=== PATIENT | male | born 1950 | race American Indian/Alaskan Native ===

== ENCOUNTER 2018-11-01 14:06 | Emergency (ER) | payer MEDICARE, OTHER ==
[2018-11-01 14:35] VITALS: BP 145/94
--- NOTE | 2018-11-01 14:35 | Emergency Department Report ---
Blank Doc - Documentation Documentation: 68 M with a u cat presents cc of pain stating that it was placed on sunday f or inability to void. no hx of bladder disease states he cant see urologist for 1 week and he is in pain
--- NOTE | 2018-11-01 15:07 | Emergency Department Report ---
ED Male HPI - General Chief complaint: Urogenital-Male Stated complaint: CATHETER REMOVAL Time Seen by Provider: 11/01/18 14:31 Source: patient Mode of arrival: Ambulatory Limitations: No Limitations - History of Present Illness Initial comments: 68-year-old male with a past medical history of hypertension, kidney stones, and a large prostate presents to Hospital once his Tapia catheter removed. Patient was here on October 26 with urinary retention and Tapia catheter with leg bag was placed at that time.. Patient had workup including CT which was positive for enlarged prostate. Patient called and made an appointment with the urologist provided. Appointment is not for another week and he wants the catheter removed to due to penile irritation. Patient states he has noticed intermittent blood in his urine but is not for persistently bleeding from the catheter. The patient denies abdominal pain, nausea, vomiting, or fever. Patient states he has been told his prostate is large and a past but has never been on Flomax and denies a history of prostate cancer. - Related Data Home Medications Medication Instructions Recorded Confirmed Last Taken Lisinopril [Zestril] 20 mg PO QDAY 04/22/14 04/22/14 04/09/14 Verapamil ER [[place] Sr] 180 mg PO BID 04/22/14 04/22/14 04/22/14 19:00 Previous Rx's Medication Instructions Recorded Last Taken Type HYDROcodone/APAP 5-325 [[place] 1 each PO Q6HR PRN #10 tablet 04/23/14 Unknown Rx 5/325] Lisinopril [Zestril TAB] 20 mg PO QDAY #30 tablet 04/23/14 Unknown Rx Verapamil ER [[place] SR] 180 mg PO BID #60 tab 04/23/14 Unknown Rx HYDROcodone/APAP 5-325 [[place] 1 - 2 each PO Q6HR PRN #14 tablet 10/26/18 Unknown Rx 5/325] Phenazopyridine [Pyridium] 200 mg PO TID #6 tab 10/26/18 Unknown Rx Tamsulosin [Flomax] 0.4 mg PO QDAY #30 cap 11/01/18 Unknown Rx Allergies Allergy/AdvReac Type Severity Reaction Status Date / Time No Known Allergies Allergy Verified 04/22/14 19:40 ED Review of Systems ROS: Stated complaint: CATHETER REMOVAL Other details as noted in HPI Comment: All other systems reviewed and negative ED Past Medical Hx - Past Medical History Hx Hypertension: Yes Hx Kidney Stones: Yes - Surgical History Additional Surgical History: leg surgery - Social History Smoking Status: Never Smoker Substance Use Type: None - Medications Home Medications: Home Medications Medication Instructions Recorded Confirmed Last Taken Type Lisinopril [Zestril] 20 mg PO QDAY 04/22/14 04/22/14 04/09/14 History Verapamil ER [[place] Sr] 180 mg PO BID 04/22/14 04/22/14 04/22/14 19:00 History HYDROcodone/APAP 5-325 [[place] 1 each PO Q6HR PRN #10 tablet 04/23/14 Unknown Rx 5/325] Lisinopril [Zestril TAB] 20 mg PO QDAY #30 tablet 04/23/14 Unknown Rx Verapamil ER [[place] SR] 180 mg PO BID #60 tab 04/23/14 Unknown Rx HYDROcodone/APAP 5-325 [[place] 1 - 2 each PO Q6HR PRN #14 tablet 10/26/18 Unknown Rx 5/325] Phenazopyridine [Pyridium] 200 mg PO TID #6 tab 10/26/18 Unknown Rx Tamsulosin [Flomax] 0.4 mg PO QDAY #30 cap 11/01/18 Unknown Rx ED Physical Exam - General Limitations: No Limitations - Other Other exam information: General: No limitations, patient is alert in no acute distress Head exam: Atraumatic, normocephalic Eyes exam: Normal appearance ENT: Moist mucous membrane Neck exam: Normal inspection, full range of motion, no meningismus nontender Respiratory exam: Clear to auscultation bilateral, no wheezes, rales, crackles Cardiovascular: Normal rate and rhythm, normal heart sounds Abdomen: Soft, nondistended, and nontender, with normal bowel sounds, no rebound, or guarding : Uncircumcised, no penile lesions, Tapia catheter, no testicular pain or swelling. Extremity: Full range of motion normal inspection no deformity Back: Normal Inspection, full range of motion, no tenderness Neurologic: Alert, oriented x3, cranial nerves intact, no motor or sensory deficit Psychiatric: normal affect, normal mood Skin: Warm, dry, intact ED Course Vital Signs 11/01/18 14:31 Temperature 97.8 F Pulse Rate 90 Respiratory 16 Rate Blood Pressure 145/94 [Left] O2 Sat by Pulse 97 Oximetry - Reevaluation(s) Reevaluation #1: 11/01/18 15:07 Patient insisting that tapia catheter be removed due to irritation. Patient warned that he could have recurrent urinary obstruction/retention. Patient still wants catheter removed. Reevaluation #2: 11/01/18 17:46 Patient was able to urinate a couple times in the ED after Tapia removal ED Medical Decision Making - Medical Decision Making Tapia catheter removed as per patient request. At risk for re-obstruction Flomax will be prescribed Urology follow-up encouraged - Differential Diagnosis BPH, prostate cancer Critical Care Time: No Critical care attestation.: If time is entered above; I have spent that time in minutes in the direct care of this critically ill patient, excluding procedure time. ED Disposition Clinical Impression: Enlarged prostate, Encounter for Tapia catheter removal Disposition: TO HOME OR SELFCARE Is pt being admited?: No Does the pt Need Aspirin: No Condition: Stable Instructions: Urinary Retention in Men (ED), Benign Prostatic Hypertrophy (ED) Additional Instructions: Take the medication as prescribed. Follow up with your doctor or the clinic/doctor provided. Return if symptoms worsen as indicated by your discharge instructions Prescriptions: Tamsulosin [Flomax] 0.4 mg PO QDAY #30 cap Referrals: NEETA BARNEY MD [Staff Physician] - 3-5 Days (Urologist) Time of Disposition: 17:46
== END 2018-11-01 18:15 | disposition home or self-care (01) ==
LOC: ED 14:06
DX: N40.0 Benign prostatic hyperplasia without lower urinary tract symptoms (principal); I10 Essential (primary) hypertension; Z87.442 Personal history of urinary calculi
CPT/HCPCS: 99282

== ENCOUNTER 2019-09-25 08:04 | Emergency (ER) | payer MEDICARE ==
[2019-09-25 08:11] VITALS: BP 156/95
--- NOTE | 2019-09-25 10:23 | Emergency Department Report ---
HPI - General Chief Complaint: Urogenital-Male Time Seen by Provider: 09/25/19 10:09 - HPI HPI: 69-year-old -Turkish male presents to the emergency department with the request of having his Fox catheter removed. It was placed last week at the [facility] secondary to some urinary retention that he believes is due to his enlarged prostate. He says that he has had Fox catheter placed before for the same reason, including at [facility]. Since having the Fox catheter placed he has been having pain to the penis and inside towards the bladder. The catheter has been draining urine. He denies any fever, abdominal pain, nausea, vomiting. He went to see his primary care physician 2 days ago and was placed on some antibiotics for the Fox catheter being in place but the patient says he was told by his PCP that the catheter can be removed after he is on antibiotics for a few days. He made an appointment with his urologist but it is not until October 31, more than 1 month away. ED Past Medical Hx - Past Medical History Hx Hypertension: Yes Hx Kidney Stones: Yes Additional medical history: ENLARGE HEART - Surgical History Additional Surgical History: leg surgery - Social History Smoking Status: Never Smoker Substance Use Type: None - Medications Home Medications: Home Medications Medication Instructions Recorded Confirmed Last Taken Type Verapamil ER [Calan Sr] 180 mg PO BID 04/22/14 04/22/14 04/22/14 19:00 History lisinopriL [Zestril] 20 mg PO QDAY 04/22/14 04/22/14 04/09/14 History HYDROcodone/APAP 5-325 [[place] 1 each PO Q6HR PRN #10 tablet 04/23/14 Unknown Rx 5/325] Verapamil ER [Calan SR] 180 mg PO BID #60 tab 04/23/14 Unknown Rx lisinopriL [Zestril TAB] 20 mg PO QDAY #30 tablet 04/23/14 Unknown Rx HYDROcodone/APAP 5-325 [[place] 1 - 2 each PO Q6HR PRN #14 tablet 10/26/18 Unknown Rx 5/325] Phenazopyridine [Pyridium] 200 mg PO TID #6 tab 10/26/18 Unknown Rx Tamsulosin [Flomax] 0.4 mg PO QDAY #30 cap 11/01/18 Unknown Rx Amlodipine Besylate [Norvasc] 5 mg PO DAILY #30 tablet 12/29/18 Unknown Rx traMADoL [Ultram] 50 mg PO Q6HR PRN #24 tablet 12/29/18 Unknown Rx ED Review of Systems ROS: Stated complaint: GROIN PAIN Other details as noted in HPI Comment: All other systems reviewed and negative Constitutional: denies: chills, fever Gastrointestinal: denies: abdominal pain, vomiting Genitourinary: other (penile pain and bladder pain from Fox catheter). denies: testicular pain Musculoskeletal: denies: back pain Physical Exam - Physical Exam Vital Signs: Vital Signs 09/25/19 08:10 Temperature 97.5 F L Pulse Rate 77 Respiratory 18 Rate Blood Pressure 156/95 O2 Sat by Pulse 98 Oximetry Physical Exam: GENERAL: The patient is well-developed well-nourished. HEENT: Normocephalic. Atraumatic. Patient has moist mucous membranes. EYES: Extraocular motions are intact. NECK: Supple. Trachea is midline. ABDOMEN: Abdomen is soft, nontender. Patient has normal bowel sounds. There is no abdominal distention. SKIN:Skin is warm and dry. . NEURO: The patient is awake, alert, and oriented. The patient is cooperative. Normal speech. MUSCULOSKELETAL: There is no tenderness or deformity. There is no evidence of acute injury. : Uncircumcised. Fox catheter in place. No penile discharge or gross blood from the urethra. No rash or lesions seen. ED Course Vital Signs 09/25/19 08:10 Temperature 97.5 F L Pulse Rate 77 Respiratory 18 Rate Blood Pressure 156/95 O2 Sat by Pulse 98 Oximetry ED Medical Decision Making - Medical Decision Making The Fox catheter was removed and the patient's discomfort has resolved. The patient has been able to display the ability to urinate without the Fox catheter in place. He has been instructed to follow-up with his primary care physician and urologist as soon as possible. He will return to the closest emergency Department with any further episodes of urinary retention or with any acute distress. A urinalysis was not done at this time as the patient is currently on antibiotics from his PCP for the Fox catheter and will continue to take them until the prescription is completed. Vital signs stable throughout his ED course. Critical Care Time: No Critical care attestation.: If time is entered above; I have spent that time in minutes in the direct care of this critically ill patient, excluding procedure time. ED Disposition Clinical Impression: Encounter for Fox catheter removal Disposition: TO HOME OR SELFCARE Is pt being admited?: No Condition: Stable Additional Instructions: Please follow up with your primary care physician and urologist regarding your recent issues with urinary retention. Return to the closest emergency Department with any further issues regarding inability to urinate, or with any acute distress. Continue taking the antibiotics as previously prescribed. Referrals: PRIMARY CARE, [Primary Care Provider] - 2-3 Days Urologist, Your [Other] - 2-3 Days Time of Disposition: 10:52
== END 2019-09-25 11:01 | disposition home or self-care (01) ==
LOC: ED 08:04
DX: Z46.6 Encounter for fitting and adjustment of urinary device (principal); I10 Essential (primary) hypertension; Z87.442 Personal history of urinary calculi; Z98.890 Other specified postprocedural states; Z79.899 Other long term (current) drug therapy
CPT/HCPCS: 99281

== ENCOUNTER 2019-11-29 18:57 | Emergency (ER) | payer MEDICARE ==
[2019-11-29 19:04] VITALS: BP 109/69
[2019-11-29 19:51] LABS: Basophils # (Auto) 0.1 K/mm3 (0.0-0.1); Basophils % (Auto) 1.4 % (0.0-1.8); Eosinophils # (Auto) 0.1 K/mm3 (0.0-0.4); Eosinophils % (Auto) 1.5 % (0.0-4.3); Hematocrit 45.9 % (35.5-45.6); Hemoglobin 15.1 gm/dl (11.8-15.2); Lymphocytes # (Auto) 2.5 K/mm3 (1.2-5.4); Lymphocytes % (Auto) 42.8 % (13.4-35.0); Mean Corpuscular HGB Conc 33 % (32-34); Mean Corpuscular Volume 89 fl (84-94); Monocytes # (Auto) 0.5 K/mm3 (0.0-0.8); Monocytes % (Auto) 8.6 % (0.0-7.3); Platelet Count 231 K/mm3 (140-440); Red Blood Count 5.15 M/mm3 (3.65-5.03); Red Cell Distribution Width 14.2 % (13.2-15.2)
[2019-11-29 20:03] LABS: INR 1.09 (0.87-1.13)
[2019-11-29 20:04] LABS: Partial Thromboplastin Time 29.8 Sec. (24.2-36.6)
[2019-11-29 20:15] LABS: Alanine Aminotransferase 30 units/L (7-56); Albumin 4.2 g/dL (3.9-5); BUN/Creatinine Ratio 14; Blood Urea Nitrogen 18 mg/dL (9-20); Calcium 9.5 mg/dL (8.4-10.2); Hemolysis Index 26
--- NOTE | 2019-11-29 22:52 | Emergency Department Report ---
ED Male HPI - General Chief complaint: Urogenital-Male Stated complaint: GI BLEED Source: patient Mode of arrival: Ambulatory Limitations: No Limitations - History of Present Illness Initial comments: Patient is a 69-year-old -Monegas[place] male with a history of BPH, hypert ension and kidney stones who presented to the ED with blocked and clogged Tapia catheter with gross hematuria in the urine collection bag for over 6 hours. Patient states that he had the Tapia catheter inserted 24 hours ago in the ED but noticed that there was a lot of blood clot in the urine and for 6 hours prior to arrival in the ED he noticed that the urine was not flowing through the tubing and that instead it was flowing around the Tapia draining tubing with gross hematuria and blood clots. Patient denies testicular pain, nausea, vomiting, dysuria, pelvic pain, headache, back pain, fever and chills or abdominal pain. MD Complaint: other (tapia catheter leakage) -: Sudden, hour(s) (6) Location: penis Radiation: none Severity: mild Severity scale (0 -10): 0 Consistency: constant Improves with: none Worsens with: none denies other symptoms, blood in urine. denies: discharge, swelling, mass, rash, urinary retention, dysuria, fever, nausea/vomiting, incontinence, other - Related Data Home Medications Medication Instructions Recorded Confirmed Last Taken Verapamil ER [Calan Sr] 180 mg PO BID 04/22/14 04/22/14 04/22/14 19:00 lisinopriL [Zestril] 20 mg PO QDAY 04/22/14 04/22/14 04/09/14 Previous Rx's Medication Instructions Recorded Last Taken Type HYDROcodone/APAP 5-325 [[place] 1 each PO Q6HR PRN #10 tablet 04/23/14 Unknown Rx 5/325] Verapamil ER [Calan SR] 180 mg PO BID #60 tab 04/23/14 Unknown Rx lisinopriL [Zestril TAB] 20 mg PO QDAY #30 tablet 04/23/14 Unknown Rx HYDROcodone/APAP 5-325 [[place] 1 - 2 each PO Q6HR PRN #14 tablet 10/26/18 Unknown Rx 5/325] Phenazopyridine [Pyridium] 200 mg PO TID #6 tab 10/26/18 Unknown Rx Amlodipine Besylate [Norvasc] 5 mg PO DAILY #30 tablet 05/12/19 Unknown Rx traMADoL [Ultram 50 MG tab] 50 mg PO Q6HR PRN #10 tablet 11/28/19 Unknown Rx Tamsulosin [Flomax] 0.4 mg PO QDAY #30 cap 11/29/19 Unknown Rx Allergies Allergy/AdvReac Type Severity Reaction Status Date / Time No Known Allergies Allergy Verified 11/28/19 13:51 ED Review of Systems ROS: Stated complaint: GI BLEED Other details as noted in HPI Constitutional: denies: chills, fever Eyes: denies: eye pain, eye discharge, vision change ENT: denies: ear pain, throat pain Respiratory: denies: cough, shortness of breath, wheezing Cardiovascular: denies: chest pain, palpitations Endocrine: no symptoms reported Gastrointestinal: denies: abdominal pain, nausea, diarrhea Genitourinary: hematuria, other (Tapia catheter blockage). denies: urgency, dysuria Musculoskeletal: denies: back pain, joint swelling, arthralgia Skin: denies: rash, lesions Neurological: denies: headache, weakness, paresthesias Psychiatric: denies: anxiety, depression Hematological/Lymphatic: denies: easy bleeding, easy bruising ED Past Medical Hx - Past Medical History Previous Medical History?: Yes Hx Hypertension: Yes Hx Kidney Stones: Yes Additional medical history: ENLARGE HEART/ PROSTRATE PROBLEMS - Surgical History Past Surgical History?: Yes Additional Surgical History: leg surgery - Social History Smoking Status: Never Smoker Substance Use Type: Alcohol - Medications Home Medications: Home Medications Medication Instructions Recorded Confirmed Last Taken Type Verapamil ER [Calan Sr] 180 mg PO BID 04/22/14 04/22/14 04/22/14 19:00 History lisinopriL [Zestril] 20 mg PO QDAY 04/22/14 04/22/14 04/09/14 History HYDROcodone/APAP 5-325 [[place] 1 each PO Q6HR PRN #10 tablet 04/23/14 Unknown Rx 5/325] Verapamil ER [Calan SR] 180 mg PO BID #60 tab 04/23/14 Unknown Rx lisinopriL [Zestril TAB] 20 mg PO QDAY #30 tablet 04/23/14 Unknown Rx HYDROcodone/APAP 5-325 [[place] 1 - 2 each PO Q6HR PRN #14 tablet 10/26/18 Unknown Rx 5/325] Phenazopyridine [Pyridium] 200 mg PO TID #6 tab 10/26/18 Unknown Rx Amlodipine Besylate [Norvasc] 5 mg PO DAILY #30 tablet 12/29/18 Unknown Rx traMADoL [Ultram 50 MG tab] 50 mg PO Q6HR PRN #10 tablet 11/28/19 Unknown Rx Tamsulosin [Flomax] 0.4 mg PO QDAY #30 cap 11/29/19 Unknown Rx ED Physical Exam - General Limitations: No Limitations General appearance: alert, in no apparent distress - Head Head exam: Present: atraumatic, normocephalic, normal inspection - Eye Eye exam: Present: normal appearance, PERRL, EOMI Pupils: Present: normal accommodation - ENT ENT exam: Present: normal exam, normal orophraynx, mucous membranes moist, TM's normal bilaterally, normal external ear exam - Neck Neck exam: Present: normal inspection, full ROM - Respiratory Respiratory exam: Present: normal lung sounds bilaterally. Absent: respiratory distress, wheezes, rales, rhonchi, chest wall tenderness, accessory muscle use, decreased breath sounds - Cardiovascular Cardiovascular Exam: Present: regular rate, normal rhythm, normal heart sounds. Absent: systolic murmur, diastolic murmur, rubs, gallop - GI/Abdominal GI/Abdominal exam: Present: soft, normal bowel sounds. Absent: tenderness, rebound, hyperactive bowel sounds, hypoactive bowel sounds - exam: Present: normal inspection External exam: Present: normal external exam, other (Tapia catheter in place with bloodstained tubing and gross hematuria in the urine collection bag) - Extremities Exam Extremities exam: Present: normal inspection, full ROM, normal capillary refill - Back Exam Back exam: Present: normal inspection, full ROM. Absent: tenderness, CVA tenderness (R), CVA tenderness (L), muscle spasm, paraspinal tenderness, vertebral tenderness - Neurological Exam Neurological exam: Present: alert, oriented X3, CN II-XII intact, normal gait, reflexes normal - Psychiatric Psychiatric exam: Present: normal affect, normal mood - Skin Skin exam: Present: warm, dry, intact, normal color. Absent: rash ED Course Vital Signs 11/29/19 19:02 Temperature 97.8 F Pulse Rate 79 Respiratory 18 Rate Blood Pressure 109/69 O2 Sat by Pulse 97 Oximetry ED Medical Decision Making - Lab Data Result diagrams: 11/29/19 19:38 11/29/19 19:38 - Medical Decision Making This is a 69-year-old -Monegas[place] male with a history of BPH, hypertension and kidney stones who presented to the ED with blocked and clogged Tapia catheter with gross hematuria in the urine collection bag for over 6 hours. Patient states that he had the Tapia catheter inserted 24 hours ago in the ED but noticed that there was a lot of blood clot in the urine and for 6 hours prior to arrival in the ED he noticed that the urine was not flowing through the tubing and that instead it was flowing around the Tapia draining tubing with gross hematuria and blood clots. In the ED, patient is alert and oriented x3 and is not in any distress with normal vital signs. Tapia catheter was removed and a new one inserted after the older Tapia catheter was flushed with normal saline and it was discovered that it had been blocked and could not drain any urine. After successfully inserting a new Tapia catheter, the urine flow was normal and the bladder scan showed about 56 cc of urine in the bladder. Patient was discharged home and advised to continue taking Flomax and to follow-up with the urologist Dr. Joseph for further evaluation. Patient was advised to contact Dr. Joseph's office first thing in the morning on Sunday, December 01, 2019 to schedule a follow-up appointment. Patient was however advised to return to the ED immediately if symptoms get worse. - Differential Diagnosis Urinary retention; Tapia Catheter blockage; UTI; BPH Critical care attestation.: If time is entered above; I have spent that time in minutes in the direct care of this critically ill patient, excluding procedure time. ED Disposition Clinical Impression: Urinary retention Tapia catheter problem Qualifiers: Encounter type: initial encounter Qualified Code(s): T83.9XXA - Unspecified complication of genitourinary prosthetic device, implant and graft, initial encounter Disposition: DC-01 TO HOME OR SELFCARE Is pt being admited?: No Does the pt Need Aspirin: No Condition: Stable Instructions: Tapia Catheter Placement and Care (ED) Additional Instructions: Follow-up with the urologist Dr. Joseph first thing on Sunday December 01, 2019 for further evaluation. Contact Dr. Joseph's office first thing in the morning to schedule a follow-up appointment. Prescriptions: Tamsulosin [Flomax] 0.4 mg PO QDAY #30 cap Referrals: NEETA JOSEPH MD [Staff Physician] - 2-3 Days (CONTACT DR. JOSEPH'S OFFICE TO SCHEDULE A FOLLOW UP APPOINTMENT) Time of Disposition: 22:47 Print Language: AMERICAN
== END 2019-11-29 23:00 | disposition home or self-care (01) ==
LOC: ED 18:57
DX: T83.9XXA Unspecified complication of genitourinary prosthetic device, implant and graft, initial encounter (principal); R33.8 Other retention of urine; I10 Essential (primary) hypertension; Z98.890 Other specified postprocedural states; Z79.899 Other long term (current) drug therapy; X58.XXXA Exposure to other specified factors, initial encounter
CPT/HCPCS: 36415; 51702; 80053; 85025; 85610; 85730; 99283

== ENCOUNTER 2020-08-26 11:01 | Observation (INO) | payer MEDICARE ==
[2020-08-26] MEDS ORDERED: ASPIRIN 325 MG TAB PO ONE (11:09)
--- NOTE | 2020-08-26 11:14 | Event Note ---
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 Further treatment and workup at subsequent clinical providers discretion. Patient/guardian urged not to elope from the ED as their condition may be serious if not clinically assessed and managed. Initial orders include: Chest pain protocol
--- NOTE | 2020-08-26 12:02 | XRay Report ---
CHEST 2 VIEWS INDICATION: Chest Pain. COMPARISON: 02/02/2020 FINDINGS: Support devices: None. Heart: Heart size is normal. Previous CABG changes are suggested. Left atrial appendage device is unc hanged. Lungs/pleura: No acute air space or interstitial disease. No pneumothorax. Additional findings: None. IMPRESSION: No acute findings. Signer Name: Raj Palmer Jr, MD Signed: 08/26/2020 11:57 AM Workstation Name: [id number]
[2020-08-26 12:10] LABS: Basophils % (Auto) 0.6 % (0.0-1.8); Eosinophils % (Auto) 0.7 % (0.0-4.3); Hematocrit 46.7 % (35.5-45.6); Hemoglobin 15.7 gm/dl (11.8-15.2); Lymphocytes # (Auto) 2.2 K/mm3 (1.2-5.4); Mean Corpuscular HGB Conc 34 % (32-34); Mean Corpuscular Volume 89 fl (84-94); Monocytes # (Auto) 0.4 K/mm3 (0.0-0.8); Monocytes % (Auto) 8.4 % (0.0-7.3); Platelet Count 225 K/mm3 (140-440); Red Blood Count 5.22 M/mm3 (3.65-5.03); Red Cell Distribution Width 12.8 % (13.2-15.2)
[2020-08-26 12:13] LABS: Alanine Aminotransferase 28 units/L (7-56); Albumin 4.3 g/dL (3.9-5)
[2020-08-26 12:14] LABS: BUN/Creatinine Ratio 11; Blood Urea Nitrogen 11 mg/dL (9-20); Calcium 9.4 mg/dL (8.4-10.2); Hemolysis Index 23
--- NOTE | 2020-08-26 12:16 | Emergency Department Report ---
ED Chest Pain HPI - General Chief Complaint: Chest Pain Stated Complaint: CHEST PAIN Time Seen by Provider: 08/26/20 11:13 Source: patient Mode of arrival: Ambulatory Limitations: No Limitations - History of Present Illness Initial Comments: This is a 70-year-old -[place] male presents to the emergency department with the complaints of left-sided headache, left-sided numbness, and left-sided chest pain, that has been going on for the past 2 days. Patient says that the chest pain is currently 8 out of 10 in intensity, sharp, and radiates down his left arm. He was seeing his hot head machine operator today, Dr. Stein, and was told to go to the emergency department after he described his symptoms. Patient denies any vision change, weakness, slurred speech, fever, but does have some shortness of breath. Patient has a past medical history of CHF, hypertension, coronary artery disease with CABG in November 2019. He has not taken anything for his symptoms prior to presentation today. No sick contacts at home. - Related Data Home Medications Medication Instructions Recorded Confirmed Last Taken Verapamil ER [Calan Sr] 180 mg PO BID 04/22/14 04/22/14 04/22/14 19:00 lisinopriL [Zestril] 20 mg PO QDAY 04/22/14 04/22/14 04/09/14 Previous Rx's Medication Instructions Recorded Last Taken Type HYDROcodone/APAP 5-325 [Barton 1 each PO Q6HR PRN #10 tablet 04/23/14 Unknown Rx 5/325] HYDROcodone/APAP 5-325 [Barton 1 - 2 each PO Q6HR PRN #14 tablet 10/26/18 Unknown Rx 5/325] Amlodipine Besylate [Norvasc] 5 mg PO DAILY #30 tablet 02/03/20 Unknown Rx Aspirin EC [Halfprin EC] 81 mg PO QDAY #100 tablet 02/03/20 Unknown Rx AtorvaSTATin [Lipitor] 40 mg PO QHS #30 tablet 02/03/20 Unknown Rx Clopidogrel [Plavix] 75 mg PO QDAY 30 Days #30 tablet 02/03/20 Unknown Rx Tamsulosin [Flomax] 0.4 mg PO QDAY #30 cap 02/03/20 Unknown Rx Verapamil ER [Calan SR] 180 mg PO BID 30 Days #60 tab 02/03/20 Unknown Rx lisinopriL [Zestril TAB] 20 mg PO QDAY 30 Days #30 tablet 02/03/20 Unknown Rx traMADoL [Ultram 50 MG tab] 50 mg PO Q6HR PRN #10 tablet 02/03/20 Unknown Rx Allergies Allergy/AdvReac Type Severity Reaction Status Date / Time No Known Allergies Allergy Verified 08/26/20 11:04 Heart Score - HEART Score History: Slightly suspicious EKG: Normal Age: > 65 Risk factors: > 3 risk factors or hx of atherosclerotic disease Troponin: < normal limit HEART Score: 4 - Critical Actions Critical Actions: 4-6 pts:12-16.6% risk of adverse cardiac event. Should be admitted ED Review of Systems ROS: Stated complaint: CHEST PAIN Other details as noted in HPI Comment: All other systems reviewed and negative Constitutional: denies: chills, fever Eyes: denies: eye pain, vision change ENT: denies: ear pain, throat pain Respiratory: shortness of breath. denies: cough Cardiovascular: chest pain. denies: palpitations Gastrointestinal: denies: abdominal pain, vomiting Genitourinary: denies: dysuria Musculoskeletal: denies: back pain, arthralgia Skin: denies: rash, lesions Neurological: headache, numbness ED Past Medical Hx - Past Medical History Hx Hypertension: Yes Hx Congestive Heart Failure: Yes (enlarge heart due to blockage) Hx Kidney Stones: Yes Additional medical history: ENLARGE HEART/ PROSTRATE PROBLEMS - Surgical History Hx Open Heart Surgery: Yes Additional Surgical History: leg surgery - Social History Smoking Status: Never Smoker - Medications Home Medications: Home Medications Medication Instructions Recorded Confirmed Last Taken Type Verapamil ER [Calan Sr] 180 mg PO BID 04/22/14 04/22/14 04/22/14 19:00 History lisinopriL [Zestril] 20 mg PO QDAY 04/22/14 04/22/14 04/09/14 History HYDROcodone/APAP 5-325 [Barton 1 each PO Q6HR PRN #10 tablet 04/23/14 Unknown Rx 5/325] HYDROcodone/APAP 5-325 [Barton 1 - 2 each PO Q6HR PRN #14 tablet 10/26/18 Un known Rx 5/325] Amlodipine Besylate [Norvasc] 5 mg PO DAILY #30 tablet 02/03/20 Unknown Rx Aspirin EC [Halfprin EC] 81 mg PO QDAY #100 tablet 02/03/20 Unknown Rx AtorvaSTATin [Lipitor] 40 mg PO QHS #30 tablet 02/03/20 Unknown Rx Clopidogrel [Plavix] 75 mg PO QDAY 30 Days #30 tablet 02/03/20 Unknown Rx Tamsulosin [Flomax] 0.4 mg PO QDAY #30 cap 02/03/20 Unknown Rx Verapamil ER [Calan SR] 180 mg PO BID 30 Days #60 tab 02/03/20 Unknown Rx lisinopriL [Zestril TAB] 20 mg PO QDAY 30 Days #30 tablet 02/03/20 Unknown Rx traMADoL [Ultram 50 MG tab] 50 mg PO Q6HR PRN #10 tablet 02/03/20 Unknown Rx ED Physical Exam - General Limitations: No Limitations - Other Other exam information: GENERAL: The patient is well-developed well-nourished. HENT: Normocephalic. Atraumatic. Patient has moist mucous membranes. EYES: Extraocular motions are intact. NECK: Supple. Trachea is midline. CHEST/LUNGS: Clear to auscultation. There is no respiratory distress noted. Unable to reproduce chest pain to palpation. HEART/CARDIOVASCULAR: Regular. There is no tachycardia. There is no murmur. ABDOMEN: Abdomen is soft, nontender. Patient has normal bowel sounds. There is no abdominal distention. SKIN: Skin is warm and dry. NEURO: The patient is awake, alert, and oriented. The patient is cooperative. There is subjective decrease sensation to the left side of the face, left arm, and left leg, when compared to the right. No pronator drift. No facial asymmetry. Normal speech. MUSCULOSKELETAL: There is no tenderness or deformity. There is no limitation range of motion. ED Course Vital Signs 08/26/20 08/26/20 08/26/20 11:09 13:22 13:55 Temperature 97.4 F L Pulse Rate 56 L 62 Respiratory 22 18 20 Rate Blood Pressure 169/93 Blood Pressure 154/95 [Left] O2 Sat by Pulse 100 100 Oximetry SATURNINO score - Saturnino Score Age > 65: (1) Yes Aspirin use within the Past 7 Days: (1) Yes 3 or more CAD Risk Factors: (1) Yes 2 or more Angina events in past 24 hrs: (1) Yes Known CAD with more than 50% Stenosis: (0) No Elevated Cardiac Markers: (0) No ST Deviation Greater than 0.5mm: (0) No SATURNINO Score: 4 ED Medical Decision Making - Lab Data Result diagrams: 08/26/20 11:29 08/26/20 11:29 Lab Results 08/26/20 08/26/20 08/26/20 Range/Units 11:29 11:29 11:29 WBC 4.8 (4.5-11.0) K/mm3 RBC 5.22 H (3.65-5.03) M/mm3 Hgb 15.7 H (11.8-15.2) gm/dl Hct 46.7 H (35.5-45.6) % MCV 89 (84-94) fl MCH 30 (28-32) pg MCHC 34 (32-34) % RDW 12.8 L (13.2-15.2) % Plt Count 225 (140-440) K/mm3 Lymph % (Auto) 47.0 H (13.4-35.0) % Charles % (Auto) 8.4 H (0.0-7.3) % Eos % (Auto) 0.7 (0.0-4.3) % Baso % (Auto) 0.6 (0.0-1.8) % Lymph # (Auto) 2.2 (1.2-5.4) K/mm3 Charles # (Auto) 0.4 (0.0-0.8) K/mm3 Eos # (Auto) 0.0 (0.0-0.4) K/mm3 Baso # (Auto) 0.0 (0.0-0.1) K/mm3 Seg Neutrophils % 43.3 (40.0-70.0) % Seg Neutrophils # 2.1 (1.8-7.7) K/mm3 PT 12.9 (12.2-14.9) Sec. INR 0.98 (0.87-1.13) APTT 31.1 (24.2-36.6) Sec. Sodium 140 (137-145) mmol/L Potassium 3.9 (3.6-5.0) mmol/L Chloride 103.0 (98-107) mmol/L Carbon Dioxide 29 (22-30) mmol/L Anion Gap 12 mmol/L BUN 11 (9-20) mg/dL Creatinine 1.0 (0.8-1.3) mg/dL Estimated GFR > 60 ml/min BUN/Creatinine Ratio 11 % Glucose 74 L (75-100) mg/dL Calcium 9.4 (8.4-10.2) mg/dL Total Bilirubin (0.1-1.2) mg/dL Direct Bilirubin (0-0.2) mg/dL Indirect Bilirubin mg/dL AST (5-40) units/L ALT (7-56) units/L Alkaline Phosphatase (35-129) units/L Troponin T < 0.010 (0.00-0.029) ng/mL NT-Pro-B Natriuret Pep (0-900) pg/mL Total Protein (6.3-8.2) g/dL Albumin (3.9-5) g/dL Albumin/Globulin Ratio % 08/26/20 Range/Units 11:29 WBC (4.5-11.0) K/mm3 RBC (3.65-5.03) M/mm3 Hgb (11.8-15.2) gm/dl Hct (35.5-45.6) % MCV (84-94) fl MCH (28-32) pg MCHC (32-34) % RDW (13.2-15.2) % Plt Count (140-440) K/mm3 Lymph % (Auto) (13.4-35.0) % Charles % (Auto) (0.0-7.3) % Eos % (Auto) (0.0-4.3) % Baso % (Auto) (0.0-1.8) % Lymph # (Auto) (1.2-5.4) K/mm3 Charles # (Auto) (0.0-0.8) K/mm3 Eos # (Auto) (0.0-0.4) K/mm3 Baso # (Auto) (0.0-0.1) K/mm3 Seg Neutrophils % (40.0-70.0) % Seg Neutrophils # (1.8-7.7) K/mm3 PT (12.2-14.9) Sec. INR (0.87-1.13) APTT (24.2-36.6) Sec. Sodium (137-145) mmol/L Potassium (3.6-5.0) mmol/L Chloride (98-107) mmol/L Carbon Dioxide (22-30) mmol/L Anion Gap mmol/L BUN (9-20) mg/dL Creatinine (0.8-1.3) mg/dL Estimated GFR ml/min BUN/Creatinine Ratio % Glucose (75-100) mg/dL Calcium (8.4-10.2) mg/dL Total Bilirubin 0.30 (0.1-1.2) mg/dL Direct Bilirubin < 0.2 (0-0.2) mg/dL Indirect Bilirubin 0.1 mg/dL AST 24 (5-40) units/L ALT 28 (7-56) units/L Alkaline Phosphatase 71 (35-129) units/L Troponin T (0.00-0.029) ng/mL NT-Pro-B Natriuret Pep 461.6 (0-900) pg/mL Total Protein 7.8 (6.3-8.2) g/dL Albumin 4.3 (3.9-5) g/dL Albumin/Globulin Ratio 1.2 % - EKG Data -: EKG Interpreted by Me EKG shows normal: sinus rhythm, axis, intervals, QRS complexes (LVH), ST-T waves Rate: normal - EKG Data When compared to previous EKG there are: changes noted (Previous EKG showed PVCs and some inverted T waves that are not currently seen.) Interpretation: LVH - Radiology Data Radiology results: report reviewed, image reviewed interpreted by me: Chest x-ray does not show any acute process. There are no pleural effusions, obvious pneumonia and there is no pneumothorax. No significant cardiomegaly. CT head/brain wo con INDICATION / CLINICAL INFORMATION: 70 years Male; headache, left sided numbness. TECHNIQUE: Routine CT head without contrast. All CT scans at this location are performed using CT dose reduction for ALARA by means of automated exposure control. COMPARISON: 02/02/2020 FINDINGS: BRAIN / INTRACRANIAL CONTENTS: Small lacunar infarcts seen in the lateral putamen on the left, which may be related to streak artifact. Similar type findings seen on prior. Otherwise, no acute hemorrhage, mass effect, midline shift, hydrocephalus, or acute, large territorial infarct. No signs of significant atrophy or chronic, large territorial infarct. No significant white matter abnormality seen. CRANIOCERVICAL JUNCTION: No significant abnormality. ORBITS: No significant abnormality of visualized orbits. SINUSES / MASTOIDS: Prior trauma seen along the anterior wall the left maxillary antrum. Prior nasal trauma noted bilaterally as well. ADDITIONAL FINDINGS: Atherosclerotic disease is seen in the anterior and posterior circulation. IMPRESSION: 1. No focal mass, hemorrhage, hydrocephalus, or acute, large territorial infarct. - Medical Decision Making This patient presents to the emergency department with the complaint of some left-sided chest pain with radiation down the left arm, as well as a left-sided headache and some left-sided numbness. On examination the patient is an NIH stroke scale of 1 with subjective decrease sensation to the left face, left arm, left leg, when compared to the right. CT of the head does not show any acute bleed, large vessel occlusion, or any other acute process. The patient's symptoms started over 24 hours ago and therefore he is not a candidate for TPA or for thrombectomy, and the patient was not made a code stroke. EKG does not have any morphology consistent with ST elevation myocardial infarction. Patient's labs have been mostly unremarkable including CBC, metabo lic panel, TSH level, and negative troponin x1 thus far. Chest x-ray does not show any pneumonia, pleural effusions, pneumothorax, focal consolidation. The patient has a moderate heart and SATURNINO score. For all these reasons the patient will be admitted to the hospital for further evaluation and treatment and was accepted for admission by the hospitalist, Dr. Alvarado. Critical Care Time: No Critical care attestation.: If time is entered above; I have spent that time in minutes in the direct care of this critically ill patient, excluding procedure time. ED Disposition Clinical Impression: Acute chest pain, History of coronary artery bypass graft x 3, Left sided numbness Headache Qualifiers: Headache type: unspecified Headache chronicity pattern: unspecified pattern Intractability: not intractable Qualified Code(s): R51.9 - Headache, unspecified Disposition: DC-09 OP ADMIT IP TO THIS HOSP Is pt being admited?: Yes Condition: Serious - Assessment Assessment Interval: 24 hours post onset of symptoms +-20 minutes - Level of Consciousness 1a. Level of Consciousness: alert/keenly responsive - LOC Questions 1b. LOC Questions: answers both correctly - LOC Command 1c. LOC Commands: performs tasks correctly - Best Gaze 2. Best Gaze: normal - Visual 3. Visual: no visual loss - Facial Palsy 4. Facial Palsy: normal symmetrical movement - Motor Arm 5a. Motor Arm Left: no drift 5b. Motor Arm Right: no drift - Motor Leg 6a. Motor Leg Left: no drift 6b. Motor Leg Right: no drift - Limb Ataxia 7. Limb Ataxia: absent - Sensory 8. Sensory: mild/moderate sensory loss - Best Language 9. Best Language: no aphasia - Dysarthria 10. Dysarthria: normal - Extinction and Inattention 11. Extinction/Inattention: no abnormality - Scoring Total Score: 1 Stroke Severity: Minor Stroke
[2020-08-26 12:18] LABS: Bilirubin,Direct < 0.2 mg/dL (0-0.2)
[2020-08-26] MEDS ORDERED: MORPHINE 4 MG/1 ML INJ IV ONE (12:18)
[2020-08-26 12:20] LABS: INR 0.98 (0.87-1.13)
[2020-08-26 12:21] LABS: Partial Thromboplastin Time 31.1 Sec. (24.2-36.6)
--- NOTE | 2020-08-26 12:44 | Cat Scan Report ---
CT head/brain wo con INDICATION / CLINICAL INFORMATION: 70 years Male; headache, left sided numbness. TECHNIQUE: Routine CT head without contrast. All CT scans at this location are performed using CT dos e reduction for ALARA by means of automated exposure control. COMPARISON: 02/02/2020 FINDINGS: BRAIN / INTRACRANIAL CONTENTS: Small lacunar infarcts seen in the lateral putamen on the left, which may be related to streak artifact. Similar type findings seen on prior. Otherwise, no acute hemorrhage, mass effect, midline shift, hydrocephalus, or acute, large territori al infarct. No signs of significant atrophy or chronic, large territorial infarct. No significant whi te matter abnormality seen. CRANIOCERVICAL JUNCTION: No significant abnormality. ORBITS: No significant abnormality of visualized orbits. SINUSES / MASTOIDS: Prior trauma seen along the anterior wall the left maxillary antrum. Prior nasal trauma noted bilaterally as well. ADDITIONAL FINDINGS: Atherosclerotic disease is seen in the anterior and posterior circulation. IMPRESSION: 1. No focal mass, hemorrhage, hydrocephalus, or acute, large territorial infarct. Signer Name: Qasim Page MD, III Signed: 08/26/2020 12:40 PM Workstation Name: [id number]
[2020-08-26] MEDS ORDERED: ALBUTEROL 2.5 MG/3 ML NEBU IH PRN (12:55)
[2020-08-26] MEDS ORDERED: ONDANSETRON 4 MG/2 ML INJ IV PRN (12:55)
[2020-08-26] MEDS ORDERED: ACETAMINOPHEN 325 MG TAB PO PRN ×2 (12:55→13:04)
--- NOTE | 2020-08-26 13:11 | History and Physical Report ---
History of Present Illness Chief complaint: My chest hurts History of present illness: 70 YO Male with Cerebral Atherosclerosis, HTN, BPH, HLD, HTN, Cardiomyopathy, CAD S/P CABG presents to ED for evaluation. Pt states that he has experienced pain in his chest over the past 2 days with persistently worsening symptoms over the same timeframe. Patient states that pain is 8/10, constant, sharp radiates down to the left arm, not worsened with exertion, not relieved with rest. Patient was seen and evaluated by his records management coordinator today who instructed the patient to seek further care at [facility]. Patient transported to [facility] via private vehicle for further care and evaluation of the aforementioned symptoms. Patient seen and evaluated in the emergency department. All lab and imaging studies reviewed. Patient found to have symptoms consistent with angina. Cardiology team consulted in ED. Patient admitted to telemetry and initiated on chest pain protocol. Patient denies fever, chills, palpitations, productive cough, skin rash, recent ill contacts, or known exposure to COVID-19. Prior admission on 02/02/2020 reviewed. All medication listed at time of admission has been reconciled. Advanced care planning conducted in ED. Past History Past Medical History: CAD, hypertension, hyperlipidemia, other (See HPI) Past Surgical History: CABG Social history: single. denies: smoking, alcohol abuse Family history: hypertension Medications and Allergies Allergies Allergy/AdvReac Type Severity Reaction Status Date / Time No Known Allergies Allergy Verified 08/26/20 11:04 Home Medications Medication Instructions Recorded Confirmed Last Taken Type Aspirin EC [Halfprin EC] 81 mg PO QDAY #100 tablet 02/03/20 08/26/20 Unknown Rx Clopidogrel [Plavix] 75 mg PO QDAY 30 Days #30 tablet 02/03/20 08/26/20 Unknown Rx AtorvaSTATin [Lipitor] 40 mg PO QHS 08/26/20 08/26/20 Unknown History Finasteride [Proscar] 5 mg PO QDAY 08/26/20 08/26/20 Unknown History Furosemide [Lasix] 20 mg PO QDAY 08/26/20 08/26/20 Unknown History Metoprolol [Lopressor TAB] 50 mg PO BID 08/26/20 08/26/20 Unknown History Tamsulosin [Flomax] 0.4 mg PO QDAY 08/26/20 08/26/20 Unknown History lisinopriL [Zestril] 20 mg PO QDAY 08/26/20 08/26/20 Unknown History Active Meds: Active Medications Acetaminophen (Acetaminophen 325 Mg Tab) 650 mg PO Q4H PRN PRN Reason: Pain MILD(1-3)/Fever >100.5/DEVRIES Hydrocodone Bitart/Acetaminophen (Hydrocodone/Acetaminophen 5-325 Mg Tab) 1 each PO Q6HR PRN PRN Reason: Pain, Moderate (4-6) Albuterol (Albuterol 2.5 Mg/3 Ml Nebu) 2.5 mg IH Q4HRT PRN PRN Reason: Shortness Of Breath Amlodipine Besylate (Amlodipine 5 Mg Tab) 5 mg PO DAILY [facility] Aspirin (Aspirin Ec 81 Mg Tab) 81 mg PO QDAY [facility] Atorvastatin Calcium (Atorvastatin 40 Mg Tab) 40 mg PO QHS [facility] Clopidogrel Bisulfate (Clopidogrel 75 Mg Tab) 75 mg PO QDAY [facility] Famotidine (Famotidine 20 Mg Tab) 20 mg PO BID [facility] Lisinopril (Lisinopril 20 Mg Tab) 20 mg PO QDAY [facility] Ondansetron HCl (Ondansetron 4 Mg/2 Ml Inj) 4 mg IV Q8H PRN PRN Reason: Nausea And Vomiting Sodium Chloride (Sodium Chloride 0.9% 10 Ml Flush Syringe) 10 ml IV BID [facility] Sodium Chloride (Sodium Chloride 0.9% 10 Ml Flush Syringe) 10 ml IV PRN PRN PRN Reason: LINE FLUSH Sodium Chloride (Sodium Chloride 0.9% 10 Ml Flush Syringe) 10 ml IV PRN PRN PRN Reason: LINE FLUSH Tamsulosin HCl (Tamsulosin 0.4 Mg Cap) 0.4 mg PO QDAY [facility] Verapamil HCl (Verapamil Er 180 Mg Tab) 180 mg PO BID [facility] Review of Systems Constitutional: no weight loss, no weight gain, no fever, no chills Ears, nose, mouth and throat: no ear pain, no ear discharge, no tinnitis, no nasal congestion Cardiovascular: chest pain, no orthopnea, no palpitations, no syncope, no lightheadedness, no shortness of breath Respiratory: no cough, no cough with sputum, no excessive sputum, no hemoptysis Gastrointestinal: no abdominal pain, no nausea, no vomiting, no diarrhea, no constipation Genitourinary Male: no hematuria, no flank pain, no discharge, no urinary frequency, no urinary hesitancy Rectal: no pain, no incontinence, no bleeding Musculoskeletal: no neck stiffness, no shooting arm pain, no arm numbness/tingling, no shooting leg pain Integumentary: no rash, no pruritis, no redness, no sores, no wounds, no jaundice Neurological: no head injury, no transient paralysis, no paralysis, no weakness Psychiatric: no anxiety, no memory loss, no sleep disturbances, no insomnia, no hypersomnia, no change in appetite Endocrine: no cold intolerance, no heat intolerance, no polydipsia, no polyuria, no nocturia, no excessive sweating Hematologic/Lymphatic: no easy bruising, no easy bleeding Allergic/Immunologic: no allergic rhinitis, no wheezing, no anaphylaxis Exam - Constitutional Vitals: Temp Pulse Resp BP Pulse Ox 97.4 F L 56 L 22 169/93 100 08/26/20 11:09 08/26/20 11:09 08/26/20 11:09 08/26/20 11:09 08/26/20 11:09 General appearance: Present: mild distress - EENT Eyes: Present: PERRL ENT: hearing intact, clear oral mucosa - Neck Neck: Present: supple, normal ROM - Respiratory Respiratory effort: normal Respiratory: bilateral: CTA - Cardiovascular Heart Sounds: Present: S1 & S2. Absent: rub, click - Extremities Extremities: pulses symmetrical, No edema Peripheral Pulses: within normal limits - Abdominal General gastrointestinal: Present: soft, non-tender, non-distended, normal bowel sounds Male genitourinary: Present: normal - Integumentary Integumentary: Present: clear, warm, dry - Musculoskeletal Musculoskeletal: gait normal, strength equal bilaterally - Psychiatric Psychiatric: appropriate mood/affect, intact judgment & insight - Neurologic Neurologic: CNII-XII intact, moves all extremities HEART Score - HEART Score EKG: Normal Age: > 65 Risk factors: > 3 risk factors or hx of atherosclerotic disease Troponin: Troponin T < 0.010 ng/mL (0.00-0.029) 08/26/20 11:29 Troponin: < normal limit - Critical Actions Critical Actions: 4-6 pts:12-16.6% risk of adverse cardiac event. Should be admitted Results - Labs CBC & Chem 7: 08/26/20 11:29 08/26/20 11:29 Labs: Abnormal lab results 08/26/20 08/26/20 Range/Units 11:29 11:29 RBC 5.22 H (3.65-5.03) M/mm3 Hgb 15.7 H (11.8-15.2) gm/dl Hct 46.7 H (35.5-45.6) % RDW 12.8 L (13.2-15.2) % Lymph % (Auto) 47.0 H (13.4-35.0) % [place] % (Auto) 8.4 H (0.0-7.3) % Glucose 74 L (75-100) mg/dL Assessment and Plan - Patient Problems (1) Angina at rest Current Visit: Yes Status: Acute Plan to address problem: Admit to telemetry, serial cardiac enzymes, EKG, cardiology team consulted in ED, nitro, supplemental oxygen, morphine, aspirin, pain control. (2) Coronary artery disease Current Visit: Yes Status: Acute Qualifiers: Associated angina: with stable angina Plan to address problem: Risk factor reduction, statin therapy, antiplatelet therapy as clinically indicated, supportive care. (3) Hypertension Current Visit: Yes Status: Acute Qualifiers: Hypertension type: essential hypertension Qualified Code(s): I10 - Essential (primary) hypertension Plan to address problem: Monitor blood pressure every shift, continue medical management. (4) Hyperlipidemia Current Visit: Yes Status: Acute Qualifiers: Hyperlipidemia type: mixed hyperlipidemia Qualified Code(s): E78.2 - Mixed hyperlipidemia Plan to address problem: Statin therapy, low-cholesterol diet, supportive care. (5) DVT prophylaxis Current Visit: Yes Status: Acute Plan to address problem: SCD to bilateral lower extremities while in bed, patient is ambulatory. (6) Advance care planning Current Visit: Yes Status: Acute Plan to address problem: Disease education conducted, care plan discussed, patient is full code, prognosis discussed, patient knowledges understanding and agreement with care plan, +30 minutes.
[2020-08-26] MEDS ORDERED: MORPHINE 2 MG/1 ML INJ ONE ×2 (13:49→15:39)
[2020-08-26] MEDS: HYDROcodone/ACETAMINOPHEN 5-325 MG TAB PO PRN (20:03)
[2020-08-26] MEDS: FAMOTIDINE 20 MG TAB PO SCH (22:45)
[2020-08-26] MEDS: VERAPAMIL ER 180 MG TAB PO SCH (22:45)
[2020-08-27] MEDS: HYDROcodone/ACETAMINOPHEN 5-325 MG TAB PO PRN ×3 (00:50→21:43)
[2020-08-27 05:22] LABS: Hemoglobin 14.1 gm/dl (11.8-15.2); Mean Corpuscular HGB Conc 34 % (32-34); Mean Corpuscular Volume 90 fl (84-94); Platelet Count 203 K/mm3 (140-440); Red Blood Count 4.67 M/mm3 (3.65-5.03)
[2020-08-27 06:17] LABS: Total Cells Counted 100
[2020-08-27 06:18] LABS: Giant Platelets Rare; Platelet Estimate Consistent w Auto; RBC Morphology Normal
[2020-08-27 06:31] LABS: Alanine Aminotransferase 24 units/L (7-56); Albumin 3.4 g/dL (3.9-5); BUN/Creatinine Ratio 10; Blood Urea Nitrogen 11 mg/dL (9-20); Calcium 8.7 mg/dL (8.4-10.2); Hemolysis Index 9
--- NOTE | 2020-08-27 09:40 | Progress Note ---
Assessment and Plan Assessment and plan: Chest pain. Cardiology consultation pending. Follow-up cardiac isoenzymes and EKG. Telemetry monitoring. Echocardiogram January 2020 revealed moderate LV dysfunction with a EF of 40% Chronic systolic heart failure, compensated. Patient appears to be euvolemic. Coronary artery disease. Patient with a history of CABG x3. Patient reports no recent evaluation Hypertension. Continue home antihypertensive medications Hyperlipidemia. Continue statin therapy. DVT prophylaxis. SCDs. History Interval history: No new issues overnight. Hospitalist Physical - Constitutional Vitals: Temp Pulse Resp BP Pulse Ox 98.6 F 57 L 18 148/87 100 08/27/20 08:00 08/27/20 08:00 08/27/20 08:00 08/27/20 08:00 08/27/20 08:00 General appearance: Present: mild distress - EENT Eyes: Present: PERRL, EOM intact ENT: hearing intact, clear oral mucosa, dentition normal - Neck Neck: Present: supple, normal ROM - Respiratory Respiratory effort: normal Respiratory: bilateral: CTA - Cardiovascular Rhythm: regular Heart Sounds: Present: S1 & S2. Absent: gallop, rub - Extremities Extremities: no ischemia, No edema, Full ROM - Abdominal General gastrointestinal: soft, non-tender, non-distended, normal bowel sounds - Integumentary Integumentary: Present: clear, warm, dry - Neurologic Neurologic: CNII-XII intact, moves all extremities HEART Score - HEART Score EKG: Normal Age: > 65 Risk factors: > 3 risk factors or hx of atherosclerotic disease Troponin: Troponin T < 0.010 ng/mL (0.00-0.029) 08/26/20 23:50 Troponin: < normal limit - Critical Actions Critical Actions: 4-6 pts:12-16.6% risk of adverse cardiac event. Should be admitted Results - Labs CBC & Chem 7: 08/27/20 04:33 08/27/20 04:33 Labs: Laboratory Last Values WBC 4.0 K/mm3 (4.5-11.0) L 08/27/20 04:33 RBC 4.67 M/mm3 (3.65-5.03) 08/27/20 04:33 Hgb 14.1 gm/dl (11.8-15.2) 08/27/20 04:33 Hct 42.0 % (35.5-45.6) 08/27/20 04:33 MCV 90 fl (84-94) 08/27/20 04:33 MCH 30 pg (28-32) 08/27/20 04:33 MCHC 34 % (32-34) 08/27/20 04:33 RDW 13.0 % (13.2-15.2) L 08/27/20 04:33 Plt Count 203 K/mm3 (140-440) 08/27/20 04:33 Lymph % (Auto) Supervisor Statement Clerks 08/27/20 04:33 [place] % (Auto) 8.4 % (0.0-7.3) H 08/26/20 11:29 Eos % (Auto) 0.7 % (0.0-4.3) 08/26/20 11:29 Baso % (Auto) 0.6 % (0.0-1.8) 08/26/20 11:29 Lymph # (Auto) 2.2 K/mm3 (1.2-5.4) 08/26/20 11:29 [place] # (Auto) 0.4 K/mm3 (0.0-0.8) 08/26/20 11:29 Eos # (Auto) 0.0 K/mm3 (0.0-0.4) 08/26/20 11:29 Baso # (Auto) 0.0 K/mm3 (0.0-0.1) 08/26/20 11:29 Add Manual Diff Complete 08/27/20 04:33 Total Counted 100 08/27/20 04:33 Seg Neutrophils % Supervisor Statement Clerks 08/27/20 04:33 Seg Neuts % (Manual) 30.0 % (40.0-70.0) L 08/27/20 04:33 Lymphocytes % (Manual) 52.0 % (13.4-35.0) H 08/27/20 04:33 Monocytes % (Manual) 16.0 % (0.0-7.3) H 08/27/20 04:33 Basophils % (Manual) 2.0 % (0.0-1.8) H 08/27/20 04:33 Nucleated RBC % Not Reportable 08/27/20 04:33 Seg Neutrophils # 2.1 K/mm3 (1.8-7.7) 08/26/20 11:29 Seg Neutrophils # Man 1.2 K/mm3 (1.8-7.7) L 08/27/20 04:33 Band Neutrophils # 0.0 K/mm3 08/27/20 04:33 Lymphocytes # (Manual) 2.1 K/mm3 (1.2-5.4) 08/27/20 04:33 Abs React Lymphs (Man) 0.0 K/mm3 08/27/20 04:33 Monocytes # (Manual) 0.6 K/mm3 (0.0-0.8) 08/27/20 04:33 Eosinophils # (Manual) 0.0 K/mm3 (0.0-0.4) 08/27/20 04:33 Basophils # (Manual) 0.1 K/mm3 (0.0-0.1) 08/27/20 04:33 Metamyelocytes # 0.0 K/mm3 08/27/20 04:33 Myelocytes # 0.0 K/mm3 08/27/20 04:33 Promyelocytes # 0.0 K/mm3 08/27/20 04:33 Blast Cells # 0.0 K/mm3 08/27/20 04:33 WBC Morphology Not Reportable 08/27/20 04:33 Hypersegmented Neuts Not Reportable 08/27/20 04:33 Hyposegmented Neuts Not Reportable 08/27/20 04:33 Hypogranular Neuts Not Reportable 08/27/20 04:33 Smudge Cells Not Reportable 08/27/20 04:33 Toxic Granulation Not Reportable 08/27/20 04:33 Toxic Vacuolation Not Reportable 08/27/20 04:33 Dohle Bodies Not Reportable 08/27/20 04:33 Pelger-Huet Anomaly Not Reportable 08/27/20 04:33 Doris Rods Not Reportable 08/27/20 04:33 Platelet Estimate Consistent w auto 08/27/20 04:33 Clumped Platelets Not Reportable 08/27/20 04:33 Plt Clumps, EDTA Not Reportable 08/27/20 04:33 Large Platelets Not Reportable 08/27/20 04:33 Giant Platelets Rare 08/27/20 04:33 Platelet Satelliting Not Reportable 08/27/20 04:33 Plt Morphology Comment Not Reportable 08/27/20 04:33 RBC Morphology Normal 08/27/20 04:33 Dimorphic RBCs Not Reportable 08/27/20 04:33 Polychromasia Not Reportable 08/27/20 04:33 Hypochromasia Not Reportable 08/27/20 04:33 Poikilocytosis Not Reportable 08/27/20 04:33 Anisocytosis Not Reportable 08/27/20 04:33 Microcytosis Not Reportable 08/27/20 04:33 Macrocytosis Not Reportable 08/27/20 04:33 Spherocytes Not Reportable 08/27/20 04:33 Pappenheimer Bodies Not Reportable 08/27/20 04:33 Sickle Cells Not Reportable 08/27/20 04:33 Target Cells Not Reportable 08/27/20 04:33 Tear Drop Cells Not Reportable 08/27/20 04:33 Ovalocytes Not Reportable 08/27/20 04:33 Helmet Cells Not Reportable 08/27/20 04:33 [place] Bodies Not Reportable 08/27/20 04:33 Martell Rings Not Reportable 08/27/20 04:33 [place] Cells Not Reportable 08/27/20 04:33 Bite Cells Not Reportable 08/27/20 04:33 Crenated Cell Not Reportable 08/27/20 04:33 Elliptocytes Not Reportable 08/27/20 04:33 Acanthocytes (Spur) Not Reportable 08/27/20 04:33 Rouleaux Not Reportable 08/27/20 04:33 Hemoglobin C Crystals Not Reportable 08/27/20 04:33 Schistocytes Not Reportable 08/27/20 04:33 Malaria parasites Not Reportable 08/27/20 04:33 Adolfo Bodies Not Reportable 08/27/20 04:33 Hem Pathologist Commnt No 08/27/20 04:33 PT 12.9 Sec. (12.2-14.9) 08/26/20 11:29 INR 0.98 (0.87-1.13) 08/26/20 11:29 APTT 31.1 Sec. (24.2-36.6) 08/26/20 11:29 D-Dimer 147.52 ng/mlDDU (0-234) 08/26/20 15:24 Sodium 140 mmol/L (137-145) 08/27/20 04:33 Potassium 4.4 mmol/L (3.6-5.0) 08/27/20 04:33 Chloride 104.0 mmol/L (98-107) 08/27/20 04:33 Carbon Dioxide 30 mmol/L (22-30) 08/27/20 04:33 Anion Gap 10 mmol/L 08/27/20 04:33 BUN 11 mg/dL (9-20) 08/27/20 04:33 Creatinine 1.1 mg/dL (0.8-1.3) 08/27/20 04:33 Estimated GFR > 60 ml/min 08/27/20 04:33 BUN/Creatinine Ratio 10 % 08/27/20 04:33 Glucose 74 mg/dL (75-100) L 08/27/20 04:33 Calcium 8.7 mg/dL (8.4-10.2) 08/27/20 04:33 Total Bilirubin 0.30 mg/dL (0.1-1.2) 08/27/20 04:33 Direct Bilirubin < 0.2 mg/dL (0-0.2) 08/26/20 11:29 Indirect Bilirubin 0.1 mg/dL 08/26/20 11:29 AST 19 units/L (5-40) 08/27/20 04:33 ALT 24 units/L (7-56) 08/27/20 04:33 Alkaline Phosphatase 58 units/L (35-129) 08/27/20 04:33 Troponin T < 0.010 ng/mL (0.00-0.029) 08/26/20 23:50 NT-Pro-B Natriuret Pep 461.6 pg/mL (0-900) 08/26/20 11:29 Total Protein 6.2 g/dL (6.3-8.2) L D 08/27/20 04:33 Albumin 3.4 g/dL (3.9-5) L 08/27/20 04:33 Albumin/Globulin Ratio 1.2 % 08/27/20 04:33 Fox/IV: Voiding Method Urinal IV Catheter Type [Left] INT / Saline Lock Active Medications - Current Medications Current Medications: Generic Name Dose Route Start Last Admin Trade Name Freq PRN Reason Stop Dose Admin Acetaminophen 650 mg 08/26/20 12:55 Acetaminophen 325 Mg Tab PO Q4H PRN Pain MILD(1-3)/Fever >100.5/DEVRIES Hydrocodone Bitart/Acetaminophen 1 each 08/26/20 12:57 08/27/20 00:50 Hydrocodone/Acetaminophen 5-325 Mg Tab PO 1 each Q6HR PRN Administration Pain, Moderate (4-6) Albuterol 2.5 mg 08/26/20 12:55 Albuterol 2.5 Mg/3 Ml Nebu IH Q4HRT PRN Shortness Of Breath Amlodipine Besylate 5 mg 08/27/20 10:00 Amlodipine 5 Mg Tab PO DAILY [facility] Aspirin 81 mg 08/27/20 10:00 Aspirin Ec 81 Mg Tab PO QDAY [facility] Atorvastatin Calcium 40 mg 08/26/20 22:00 08/26/20 22:45 Atorvastatin 40 Mg Tab PO 40 mg QHS [facility] Administration Clopidogrel Bisulfate 75 mg 08/27/20 10:00 Clopidogrel 75 Mg Tab PO QDAY [facility] Famotidine 20 mg 08/26/20 22:00 08/26/20 22:45 Famotidine 20 Mg Tab PO 20 mg BID [facility] Administration Lisinopril 20 mg 08/27/20 10:00 Lisinopril 20 Mg Tab PO QDAY [facility] Ondansetron HCl 4 mg 08/26/20 12:55 Ondansetron 4 Mg/2 Ml Inj IV Q8H PRN Nausea And Vomiting Sodium Chloride 10 ml 08/26/20 22:00 08/26/20 22:46 Sodium Chloride 0.9% 10 Ml Flush Syringe IV 10 ml BID JOSEE Administration Sodium Chloride 10 ml 08/26/20 12:55 Sodium Chloride 0.9% 10 Ml Flush Syringe IV PRN PRN LINE FLUSH Sodium Chloride 10 ml 08/26/20 13:04 Sodium Chloride 0.9% 10 Ml Flush Syringe IV PRN PRN LINE FLUSH Tamsulosin HCl 0.4 mg 08/27/20 10:00 Tamsulosin 0.4 Mg Cap PO QDAY [facility] Verapamil HCl 180 mg 08/26/20 22:00 08/26/20 22:45 Verapamil Er 180 Mg Tab PO 180 mg BID JOSEE Administration
[2020-08-27] MEDS: LISINOPRIL 20 MG TAB PO SCH (10:01)
[2020-08-27] MEDS: ASPIRIN EC 81 MG TAB PO SCH (10:01)
[2020-08-27] MEDS: FAMOTIDINE 20 MG TAB PO SCH ×2 (10:01→21:19)
[2020-08-27] MEDS: TAMSULOSIN 0.4 MG CAP PO SCH (10:01)
[2020-08-27] MEDS: amLODIPine 5 MG TAB PO SCH (10:01)
[2020-08-27] MEDS: CLOPIDOGREL 75 MG TAB PO SCH (10:01)
[2020-08-27] MEDS: VERAPAMIL ER 180 MG TAB PO SCH ×2 (12:02→21:19)
--- NOTE | 2020-08-27 13:17 | Consultation ---
History of Present Illness Consult date: 08/27/20 Consult reason: chest pain History of present illness: The patient is a 70-year-old man who has coronary artery disease, underwent t hree-vessel coronary artery bypass in [place] 8 months ago. He was hospitalized here 6 months ago with pneumonia, and is well-known to our service from that visit. We were asked to see him in consultation, and an echocardiogram demonstrated a residual mild cardiomyopathy with ejection fraction 40%. He is readmitted at the hospital this time, cardiac consultation was requested for chest pain. However the patient primarily describes several days of unilateral left-sided headache, associated with numbness down his left arm and left leg. There is no exertional chest pain or shortness of breath, no palpitations and no lower extremity edema. Serial ECGs, showing normal sinus rhythm with no ST or T wave changes of ischemia. Serial cardiac troponin levels are negative. Chest x-ray shows mild cardiomegaly, evidence of prior thoracotomy, but no interstitial edema or heart failure. Past History Past Medical History: CAD, hypertension, hyperlipidemia, other (See HPI) Past Surgical History: CABG Social history: single. denies: smoking, alcohol abuse Family history: hypertension Medications and Allergies Allergies Allergy/AdvReac Type Severity Reaction Status Date / Time No Known Allergies Allergy Verified 08/26/20 11:04 Home Medications Medication Instructions Recorded Confirmed Last Taken Type Aspirin EC [Halfprin EC] 81 mg PO QDAY #100 tablet 02/03/20 08/26/20 Unknown Rx Clopidogrel [Plavix] 75 mg PO QDAY 30 Days #30 tablet 02/03/20 08/26/20 Unknown Rx AtorvaSTATin [Lipitor] 40 mg PO QHS 08/26/20 08/26/20 Unknown History Finasteride [Proscar] 5 mg PO QDAY 08/26/20 08/26/20 Unknown History Furosemide [Lasix] 20 mg PO QDAY 08/26/20 08/26/20 Unknown History Metoprolol [Lopressor TAB] 50 mg PO BID 08/26/20 08/26/20 Unknown History Tamsulosin [Flomax] 0.4 mg PO QDAY 08/26/20 08/26/20 Unknown History lisinopriL [Zestril] 20 mg PO QDAY 08/26/20 08/26/20 Unknown History Active Meds: Active Medications Acetaminophen (Acetaminophen 325 Mg Tab) 650 mg PO Q4H PRN PRN Reason: Pain MILD(1-3)/Fever >100.5/DEVRIES Hydrocodone Bitart/Acetaminophen (Hydrocodone/Acetaminophen 5-325 Mg Tab) 1 each PO Q6HR PRN PRN Reason: Pain, Moderate (4-6) Last Admin: 08/27/20 00:50 Dose: 1 each Documented by: Albuterol (Albuterol 2.5 Mg/3 Ml Nebu) 2.5 mg IH Q4HRT PRN PRN Reason: Shortness Of Breath Amlodipine Besylate (Amlodipine 5 Mg Tab) 5 mg PO DAILY [facility] Last Admin: 08/27/20 10:01 Dose: 5 mg Documented by: Aspirin (Aspirin Ec 81 Mg Tab) 81 mg PO QDAY [facility] Last Admin: 08/27/20 10:01 Dose: 81 mg Documented by: Atorvastatin Calcium (Atorvastatin 40 Mg Tab) 40 mg PO QHS [facility] Last Admin: 08/26/20 22:45 Dose: 40 mg Documented by: Clopidogrel Bisulfate (Clopidogrel 75 Mg Tab) 75 mg PO QDAY [facility] Last Admin: 08/27/20 10:01 Dose: 75 mg Documented by: Famotidine (Famotidine 20 Mg Tab) 20 mg PO BID [facility] Last Admin: 08/27/20 10:01 Dose: 20 mg Documented by: Lisinopril (Lisinopril 20 Mg Tab) 20 mg PO QDAY [facility] Last Admin: 08/27/20 10:01 Dose: 20 mg Documented by: Ondansetron HCl (Ondansetron 4 Mg/2 Ml Inj) 4 mg IV Q8H PRN PRN Reason: Nausea And Vomiting Sodium Chloride (Sodium Chloride 0.9% 10 Ml Flush Syringe) 10 ml IV BID [facility] Last Admin: 08/27/20 10:02 Dose: 10 ml Documented by: Sodium Chloride (Sodium Chloride 0.9% 10 Ml Flush Syringe) 10 ml IV PRN PRN PRN Reason: LINE FLUSH Sodium Chloride (Sodium Chloride 0.9% 10 Ml Flush Syringe) 10 ml IV PRN PRN PRN Reason: LINE FLUSH Tamsulosin HCl (Tamsulosin 0.4 Mg Cap) 0.4 mg PO QDAY [facility] Last Admin: 08/27/20 10:01 Dose: 0.4 mg Documented by: Verapamil HCl (Verapamil Er 180 Mg Tab) 180 mg PO BID [facility] Last Admin: 08/27/20 12:02 Dose: 180 mg Documented by: Review of Systems Cardiovascular: no chest pain, no orthopnea, no palpitations, no rapid/irregular heart beat, no edema, no syncope, no lightheadedness, no shortness of breath Physical Examination Vital Signs Temp Pulse Resp BP Pulse Ox 97.4 F L 56 L 22 169/93 100 08/26/20 11:09 08/26/20 11:09 08/26/20 11:09 08/26/20 11:09 08/26/20 11:09 General appearance: no acute distress HEENT: Positive: PERRL Neck: Positive: neck supple Cardiac: Positive: Reg Rate and Rhythm Lungs: Positive: Decreased Breath Sounds Neuro: Positive: Grossly Intact Abdomen: Positive: Soft Male genitourinary: Positive: deferred Skin: Positive: Clear Extremities: Absent: edema Results 08/27/20 04:33 08/27/20 04:33 Cardiac Enzymes 08/27/20 Range/Units 04:33 AST 19 (5-40) units/L CBC 08/27/20 Range/Units 04:33 WBC 4.0 L (4.5-11.0) K/mm3 RBC 4.67 (3.65-5.03) M/mm3 Hgb 14.1 (11.8-15.2) gm/dl Hct 42.0 (35.5-45.6) % Plt Count 203 (140-440) K/mm3 Comprehensive Metabolic Panel 08/27/20 Range/Units 04:33 Sodium 140 (137-145) mmol/L Potassium 4.4 (3.6-5.0) mmol/L Chloride 104.0 (98-107) mmol/L Carbon Dioxide 30 (22-30) mmol/L BUN 11 (9-20) mg/dL Creatinine 1.1 (0.8-1.3) mg/dL Glucose 74 L (75-100) mg/dL Calcium 8.7 (8.4-10.2) mg/dL AST 19 (5-40) units/L ALT 24 (7-56) units/L Alkaline Phosphatase 58 (35-129) units/L Total Protein 6.2 L D (6.3-8.2) g/dL Albumin 3.4 L (3.9-5) g/dL EKG interpretations - Telemetry EKG Rhythm: Sinus Rhythm Assessment and Plan - Patient Problems (1) History of coronary artery bypass graft x 3 Current Visit: Yes Status: Acute Plan to address problem: Patient presents with primarily symptoms of left-sided unilateral headache associated with left arm and left leg numbness. He has no exertional chest pain, no shortness of breath and no cardiac related anginal symptoms. He is 8 months post three-vessel coronary artery bypass, serial EKGs and serial cardiac enzymes are negative. His left ventricular ejection fraction was 40% on recent echocardiogram. No further cardiac work-up is indicated for headache and left-sided numbness, recommend neurological assessment for these symptoms.
[2020-08-28] MEDS ORDERED: NITROGLYCERIN 0.4 MG TAB SUBL SL PRN (01:13)
--- NOTE | 2020-08-28 09:32 | Discharge Summary ---
Providers - Providers Date of Admission: 08/26/20 12:55 Date of discharge: 08/28/20 Attending physician: HERNAN RIVAS 08/26/20 Consult to Cardiac Rehabilitation [CONS] Routine Reason For Exam: Phase I 08/26/20 13:04 Consult to Cardiology [CONS] Routine Consulting Provider: JUAN JEROME Reason For Exam: angina 08/27/20 16:06 Physical Therapy Evaluation and Treat [CONS] Routine Comment: Reason For Exam: debillity Date of last referral: 08/27/20 Primary care physician: FUR DESIGNER Hospitalization Reason for admission: cp Condition: Serious Hospital course: Patient is a 69 y/o man w/ a h/o CAD s/p CABG in November,, who presented with complaints of chest pain and left sided numbness. The patient had a previous hospitalization with the same complaints 6 months ago and was seen both by cardiology and neurology. Cardiology was asked to see the patient again on this hospitalization and reported no further cardiac work-up indicated. Serial EKGs and serial cardiac enzymes were negative. His left ventricular ejection fraction was 40% on previous echocardiogram. With regards to his unilateral headache and left-sided numbness, patient underwent CT scan on this admission which was found to be negative. On previous admission patient was noted to have MRI of brain with no acute abnormalities and MRA head/neck: noted to have stenosis in b/l vertebral arteries, with areas of occlusion in right vertebral artery, which is likely chronic. At that time, neurology recommended dual an tiplatelet therapy with aspirin 81 mg daily and Plavix 75 mg daily for 30 days, after which Plavix can be stopped. Also, recommendations for statin. This hospitalization patient will undergo CTA of head and neck and found to be negative will likely discharge home with aspirin and Plavix long-term or until follow-up with neurologist as an outpatient. Patient currently with no deficits. Dedicated discharge time 35 minutes. Disposition: TO HOME OR SELFCARE Time spent for discharge: 35 - Discharge Diagnoses (1) Acute chest pain Status: Acute (2) Coronary artery disease Status: Acute Qualifiers: Associated angina: with stable angina (3) Headache Status: Acute Qualifiers: Headache type: unspecified Headache chronicity pattern: unspecified pattern Intractability: not intractable Qualified Code(s): R51.9 - Headache, unspecified (4) History of coronary artery bypass graft x 3 Status: Acute (5) Hyperlipidemia Status: Acute Qualifiers: Hyperlipidemia type: mixed hyperlipidemia Qualified Code(s): E78.2 - Mixed hyperlipidemia (6) Hypertension Status: Acute Qualifiers: Hypertension type: essential hypertension Qualified Code(s): I10 - Essential (primary) hypertension (7) Left sided numbness Status: Acute Core Measure Documentation - Palliative Care Palliative Care/ Comfort Measures: Not Applicable - Core Measures Any of the following diagnoses?: none Exam - Constitutional Vitals: Temp Pulse Resp BP Pulse Ox 97.8 F 65 18 97/60 95 08/28/20 08:38 08/28/20 08:38 08/28/20 08:38 08/28/20 08:38 08/28/20 08:38 General appearance: Present: no acute distress, well-nourished - EENT Eyes: Present: PERRL ENT: hearing intact, clear oral mucosa - Neck Neck: Present: supple, normal ROM - Respiratory Respiratory effort: normal Respiratory: bilateral: CTA - Cardiovascular Heart Sounds: Present: S1 & S2. Absent: rub, click - Extremities Extremities: pulses symmetrical, No edema Peripheral Pulses: within normal limits - Abdominal General gastrointestinal: Present: soft, non-tender, non-distended, normal bowel sounds Male genitourinary: Present: normal - Integumentary Integumentary: Present: clear, warm, dry - Musculoskeletal Musculoskeletal: gait normal, strength equal bilaterally - Psychiatric Psychiatric: appropriate mood/affect, intact judgment & insight - Neurologic Neurologic: CNII-XII intact, moves all extremities Plan Activity: advance as tolerated Weight Bearing Status: Weight Bear as Tolerated Diet: low fat, low cholesterol, low salt Follow up with: PRIMARY CARE, [Primary Care Provider] - 7 Days SAL PARISH MD [Staff Physician] - 7 Days JUAN JEROME MD [Staff Physician] - 7 Days Prescriptions: amLODIPine 5 mg PO DAILY #30 tablet Verapamil ER [Calan SR] 180 mg PO BID #60 tablet Tamsulosin [Flomax] 0.4 mg PO QDAY #30 capsule Aspirin EC [Halfprin EC] 81 mg PO QDAY #100 tablet AtorvaSTATin [Lipitor] 40 mg PO QHS #30 tablet Famotidine [Pepcid] 20 mg PO BID #60 tablet Clopidogrel [Plavix] 75 mg PO QDAY #30 tablet lisinopriL [Zestril TAB] 20 mg PO QDAY #30 tablet
--- NOTE | 2020-08-28 09:36 | Progress Note ---
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 Patient was started on asa and plavix per neurology and advised to discontinue plavix 30 days later Recommendations: Patient had similar presentation back January 2020. Chest Pain is atypical with no angina features. Patient may go home and follow-up with his primary physician scientist as outpatient for further cardiac testing and risk stratification Subjective Date of service: 08/28/20 Principal diagnosis: Chest Pain Interval history: Patient main complain is left sided headache and left upper and lower extremity numbness. He denies however any weakness. He describes occasional aching in his chest that is non-pleuritic and non-exertional. 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 Objective Vital Signs Temp Pulse Pulse Pulse Resp BP BP 08/28/20 08:38 97.8 F 65 18 97/60 08/28/20 03:20 97.6 F 69 16 110/65 08/28/20 01:28 60 16 08/28/20 00:41 98.3 F 66 16 111/56 08/28/20 00:00 82 08/27/20 22:38 08/27/20 22:15 98.6 F 67 16 111/63 08/27/20 22:14 67 16 111/63 08/27/20 22:00 08/27/20 16:37 14 08/27/20 16:10 98.4 F 75 18 123/72 08/27/20 16:00 68 08/27/20 15:37 16 08/27/20 12:57 59 L 59 L 17 08/27/20 12:02 67 110/64 08/27/20 12:01 97.8 F 67 17 110/64 08/27/20 10:01 60 154/88 Pulse Ox 08/28/20 08:38 95 08/28/20 03:20 100 08/28/20 01:28 08/28/20 00:41 99 08/28/20 00:00 08/27/20 22:38 99 08/27/20 22:15 99 08/27/20 22:14 99 08/27/20 22:00 97 08/27/20 16:37 08/27/20 16:10 96 08/27/20 16:00 08/27/20 15:37 08/27/20 12:57 99 08/27/20 12:02 08/27/20 12:01 99 08/27/20 10:01 - Physical Examination HEENT: Positive: PERRL Neck: Positive: neck supple Cardiac: Positive: Reg Rate and Rhythm Lungs: Positive: Normal Exam Neuro: Positive: Grossly Intact Abdomen: Positive: Soft Skin: Positive: Clear Extremities: Absent: edema
[2020-08-28] MEDS: LISINOPRIL 20 MG TAB PO SCH (10:14)
[2020-08-28] MEDS: amLODIPine 5 MG TAB PO SCH (10:14)
[2020-08-28] MEDS: CLOPIDOGREL 75 MG TAB PO SCH (10:14)
[2020-08-28] MEDS: VERAPAMIL ER 180 MG TAB PO SCH (10:14)
[2020-08-28] MEDS: FAMOTIDINE 20 MG TAB PO SCH (10:14)
[2020-08-28] MEDS: ASPIRIN EC 81 MG TAB PO SCH (10:14)
[2020-08-28] MEDS: TAMSULOSIN 0.4 MG CAP PO SCH (10:14)
[2020-08-28 12:34] VITALS: BP 122/69
--- NOTE | 2020-08-28 15:10 | Cat Scan Report ---
CTA NECK WITH CONTRAST 08/28/2020 INDICATION / CLINICAL INFORMATION: left sided numbness. COMPARISON: None. TECHNIQUE: Routine CTA of the neck is performed. 3-D/MIP reformats were postprocessed. Percentage st enosis is determined by direct quantitative measurements of diseased internal carotid artery diameter compared with normal distal internal carotid artery reference segments or by criteria similar to PATT CET where applicable. All CT scans at this location are performed using CT dose reduction for ALARA b y means of automated exposure control. CONTRAST: 100 ml of Isovue 370 FINDINGS: Carotid bifurcations: There is no evidence of carotid bifurcation stenosis. Mild atherosclerotic vasc ular calcifications are associated with the bifurcations. Carotid arteries: No significant abnormality. Cervical vertebral arteries: Left vertebral artery is unremarkable. 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 Aortic arch: No significant abnormality. None. IMPRESSION: No evidence of carotid bifurcation stenosis. Hypoplastic right vertebral artery. Signer Name: Ozzy Ludwig MD Signed: 08/28/2020 3:06 PM Workstation Name: [id number]
--- NOTE | 2020-08-28 15:14 | Cat Scan Report ---
CTA HEAD WITH CONTRAST 08/28/2020 HISTORY: Left-sided numbness COMPARISON: None. TECHNIQUE: All CT scans at this location are performed using CT dose reduction for ALARA by means of automated exposure control.. 3-D/MIP reformats postprocessed. Percentage stenosis is determined by d irect quantitative measurements of diseased internal carotid artery diameter compared with normal dis edyta internal carotid artery reference segments or by criteria similar to NASCET where applicable. CONTRAST: 100 ml of Isovue 370 FINDINGS: CTA HEAD: Intracranial vertebral arteries: The right distal vertebral artery is absent, which may be due to dev elopmental variation. Atherosclerotic calcifications are associated with the distal left vertebral ar arnold, which has a focal central stenosis. Basilar artery: Basilar artery is relatively hypoplastic, with some central atherosclerotic irregular ity. Posterior cerebral arteries: Prominent posterior communicating arteries are present bilaterally, whic h is normal anatomic variation. Moderate atherosclerotic irregularity is seen along the course of the right posterior cerebral artery. Intracranial internal carotid arteries: Bilateral atherosclerotic changes are associated with the dis edyta internal carotid arteries at the level of the cavernous sinuses, more prominently on the right. M oderately severe stenosis associated with right distal ICA. Moderate stenosis is present on the left. Anterior cerebral arteries: No significant abnormality. Middle cerebral arteries: No significant abnormality. Dural venous sinuses:Not optimally opacified. No significant abnormality. IMPRESSION: 1. Intracranial atherosclerotic changes as described above. Signer Name: Ozzy Ludwig MD Signed: 08/28/2020 3:09 PM Workstation Name: [id number]
== END 2020-08-28 15:57 | disposition home or self-care (01) ==
LOC: ED 11:01 → 4A 12:55
PROVIDERS: ADMIT Internal Medicine; ATTEND Hospitalist
DX: I20.8 Other forms of angina pectoris (principal); I11.0 Hypertensive heart disease with heart failure; I50.9 Heart failure, unspecified; E78.5 Hyperlipidemia, unspecified; N40.0 Benign prostatic hyperplasia without lower urinary tract symptoms; I70.90 Unspecified atherosclerosis; R51.9 Headache, unspecified; I42.9 Cardiomyopathy, unspecified; Z95.1 Presence of aortocoronary bypass graft; Z79.82 Long term (current) use of aspirin
CPT/HCPCS: 36415; 70450; 70496; 70498; 71046; 80048; 80053; 80076; 83880; 84484; 85025; 85379; 85610; 85730; 93005; 96374; 97161; 99285; A9270; G0378; J2270; Q9967; 85007

== ENCOUNTER 2021-09-24 13:03 | Emergency (ER) | payer MEDICARE ==
--- NOTE | 2021-09-24 15:03 | Emergency Department Report ---
ED Abdominal Pain HPI - General Chief Complaint: Extremity Injury, Lower Stated Complaint: LUMP IN GRORIN AREA Time Seen by Provider: 09/24/21 13:50 Source: patient Mode of arrival: Ambulatory Limitations: No Limitations - History of Present Illness Initial Comments: 71-year-old -[place] male presents emerged from complaining of a few day history of pelvic mass to the inguinal area which he has suspicion of being a hernia presents emerged from seen for evaluation treatment options. Ports no diarrhea, constipation, no fever, chills, sweats but no nausea, no vomiting, no chest pain no palpitations no hemoptysis no hematemesis no hematochezia. He also having pain to his right calf off and on used to walk about 8 miles per day but over the last month is not not done so now has been beginning to develop some irritation and pain to the calf. MD Complaint: abdominal pain -: Gradual Location: diffuse Radiation: none Migration to: no migration Severity: mild Severity scale (0 -10): 6 Quality: dull Consistency: constant Improves With: nothing Worsens With: nothing Associated Symptoms: denies other symptoms - Related Data Home Medications Medication Instructions Recorded Confirmed Last Taken AtorvaSTATin [Lipitor] 40 mg PO QHS 08/26/20 08/26/20 Unknown Finasteride [Proscar] 5 mg PO QDAY 08/26/20 08/26/20 Unknown Furosemide [Lasix TAB] 20 mg PO QDAY 08/26/20 08/26/20 Unknown Metoprolol [Lopressor TAB] 50 mg PO BID 08/26/20 08/26/20 Unknown Tamsulosin [Flomax] 0.4 mg PO QDAY 08/26/20 08/26/20 Unknown lisinopriL [Zestril TAB] 20 mg PO QDAY 08/26/20 08/26/20 Unknown Previous Rx's Medication Instructions Recorded Last Taken Type Aspirin EC [Halfprin EC] 81 mg PO QDAY #100 tablet 08/28/20 Unknown Rx AtorvaSTATin [Lipitor] 40 mg PO QHS #30 tablet 08/28/20 Unknown Rx Clopidogrel [Plavix] 75 mg PO QDAY #30 tablet 08/28/20 Unknown Rx Famotidine [Pepcid] 20 mg PO BID #60 tablet 08/28/20 Unknown Rx Tamsulosin [Flomax] 0.4 mg PO QDAY #30 capsule 08/28/20 Unknown Rx Verapamil ER [Calan SR] 180 mg PO BID #60 tablet 08/28/20 Unknown Rx amLODIPine 5 mg PO DAILY #30 tablet 08/28/20 Unknown Rx lisinopriL [Zestril TAB] 20 mg PO QDAY #30 tablet 08/28/20 Unknown Rx Ketorolac [Toradol] 10 mg PO Q6H PRN #20 09/24/21 Unknown Rx cephALEXin [Keflex] 500 mg PO Q8HR #30 cap 09/24/21 Unknown Rx Allergies Allergy/AdvReac Type Severity Reaction Status Date / Time No Known Allergies Allergy Verified 09/24/21 13:26 ED Review of Systems ROS: Stated complaint: LUMP IN GRORIN AREA Other details as noted in HPI Comment: All other systems reviewed and negative ED Past Medical Hx - Past Medical History Hx Hypertension: Yes Hx Congestive Heart Failure: Yes (enlarge heart due to blockage) Hx Kidney Stones: Yes Additional medical history: ENLARGE HEART/ PROSTRATE PROBLEMS - Surgical History Hx Open Heart Surgery: Yes Additional Surgical History: leg surgery - Social History Smoking Status: Never Smoker - Medications Home Medications: Home Medications Medication Instructions Recorded Confirmed Last Taken Type AtorvaSTATin [Lipitor] 40 mg PO QHS 08/26/20 08/26/20 Unknown History Finasteride [Proscar] 5 mg PO QDAY 08/26/20 08/26/20 Unknown History Furosemide [Lasix TAB] 20 mg PO QDAY 08/26/20 08/26/20 Unknown History Metoprolol [Lopressor TAB] 50 mg PO BID 08/26/20 08/26/20 Unknown History Tamsulosin [Flomax] 0.4 mg PO QDAY 08/26/20 08/26/20 Unknown History lisinopriL [Zestril TAB] 20 mg PO QDAY 08/26/20 08/26/20 Unknown History Aspirin EC [Halfprin EC] 81 mg PO QDAY #100 tablet 08/28/20 Unknown Rx AtorvaSTATin [Lipitor] 40 mg PO QHS #30 tablet 08/28/20 Unknown Rx Clopidogrel [Plavix] 75 mg PO QDAY #30 tablet 08/28/20 Unknown Rx Famotidine [Pepcid] 20 mg PO BID #60 tablet 08/28/20 Unknown Rx Tamsulosin [Flomax] 0.4 mg PO QDAY #30 capsule 08/28/20 Unknown Rx Verapamil ER [Calan SR] 180 mg PO BID #60 tablet 08/28/20 Unknown Rx amLODIPine 5 mg PO DAILY #30 tablet 08/28/20 Unknown Rx lisinopriL [Zestril TAB] 20 mg PO QDAY #30 tablet 08/28/20 Unknown Rx Ketorolac [Toradol] 10 mg PO Q6H PRN #20 09/24/21 Unknown Rx cephALEXin [Keflex] 500 mg PO Q8HR #30 cap 09/24/21 Unknown Rx ED Physical Exam - General Limitations: No Limitations General appearance: alert, in no apparent distress - Head Head exam: Present: atraumatic, normocephalic - Eye Eye exam: Present: normal appearance - ENT ENT exam: Present: mucous membranes moist - Neck Neck exam: Present: normal inspection - Respiratory Respiratory exam: Present: normal lung sounds bilaterally. Absent: respiratory distress - Cardiovascular Cardiovascular Exam: Present: regular rate, normal rhythm. Absent: systolic murmur, diastolic murmur, rubs, gallop - GI/Abdominal GI/Abdominal exam: Present: soft, tenderness (Tenderness to the right inguinal suprapubic region unable to reduce the mass but the mass does feel more bony in nature. Does appear to track down to the inguinal crease as well. No cellulitis no lymphangitis no subcutaneous emphysema is present. No referred pain to the abdomen), normal bowel sounds, mass. Absent: guarding, rebound, organomegaly - Rectal Rectal exam: Present: deferred - Extremities Exam Extremities exam: Present: normal inspection, tenderness (Significant tenderness to the right calf with palpation. Minimal swelling is noted. Pulses 2+ cap refills brisk no cord sign noted.) - Back Exam Back exam: Present: normal inspection - Neurological Exam Neurological exam: Present: alert, oriented X3 - Psychiatric Psychiatric exam: Present: normal affect, normal mood - Skin Skin exam: Present: warm, dry, intact, normal color. Absent: rash ED Course Vital Signs 09/24/21 09/24/21 13:28 19:30 Temperature 98.4 F 98.6 F Pulse Rate 67 77 Respiratory 18 14 Rate Blood Pressure 192/84 169/107 [Right] O2 Sat by Pulse 100 99 Oximetry ED Medical Decision Making - Lab Data Result diagrams: 09/24/21 14:58 09/24/21 14:58 - Radiology Data Radiology results: report reviewed [facility] [address] [place] [address] Cat Scan Report Signed Patient: KAITY LOPEZ MR#: [id number] : 1950 Acct:[id number] Age/Sex: 71 / M ADM Date: 09/24/21 Loc: ED Attending Dr: Ordering Physician: NIKOLE RIVERA Date of Service: 09/24/21 Procedure(s): CT abdomen pelvis w con Accession Number(s): [id number] cc: NIKOLE RIVERA CT ABDOMEN AND PELVIS WITH CONTRAST INDICATION / CLINICAL INFORMATION: Lower ABD Pain. Calf pain and sudden chest pain. TECHNIQUE: Axial CT images were obtained through the abdomen and pelvis after 100 mL Omnipaque [address] scans at this location are performed using CT dose reduction for ALARA by means of automated exposure control. COMPARISON: CT dated 10/26/18 FINDINGS: LOWER CHEST: No significant abnormality. LIVER: No significant abnormality. GALLBLADDER: No significant abnormality. BILE DUCTS: No significant abnormality. PANCREAS: No significant abnormality. SPLEEN: No significant abnormality. ADRENALS: No significant abnormality. RIGHT KIDNEY / URETER: No significant abnormality. LEFT KIDNEY / URETER: No significant abnormality. STOMACH / SMALL BOWEL: No significant abnormality. COLON: Moderate amount of fecal material in the rectal vault with small to moderate amount of fecal material throughout the remainder of the colon. APPENDIX: Not visualized. PERITONEUM: No free fluid. No free air. No fluid collection. LYMPH NODES: No significant adenopathy. AORTA / ARTERIES: No significant abnormality. IVC / VEINS: No significant abnormality. URINARY BLADDER: Contracted and mildly thick-walled. REPRODUCTIVE ORGANS: Prostate is enlarged. ADDITIONAL FINDINGS: Small amount of fluid and inflammation within and around the right adductor longus muscle extending into the right groin. SKELETAL SYSTEM: Post traumatic deformity of the left iliac wing with mild anterior wedging of the L1 vertebral body, unchanged. No acute osseous abnormality. IMPRESSION: 1. Moderate amount of fecal material in the rectal vault could represent constipation versus developing fecal impaction. 2. No inflammatory process or bowel obstruction. 3. Right groin muscular fluid inflammation which could be posttraumatic such as muscle strain versus inflammatory/infectious. Signer Name: Janie Khan MD Signed: 09/24/2021 7:01 PM Workstation Name: [id number] Transcribed By: JERAD Dictated By: Richie Khan MD Electronically Authenticated By: Richie Khan MD Signed Date/Time: 09/24/211900 DD/ 54 TD/TT: [facility] [address] [place] [address] Cat Scan Report Signed Patient: KAITY LOPEZ MR#: [id number] : 1950 Acct:[id number] Age/Sex: 71 / M ADM Date: 09/24/21 Loc: ED Attending Dr: Ordering Physician: NIKOLE RIVERA Date of Service: 09/24/21 Procedure(s): CT angio chest Accession Number(s): [id number] cc: NIKOLE RIVERA CTA CHEST WITH CONTRAST INDICATION / CLINICAL INFORMATION: calf pain and sudden chest pain. TECHNIQUE: Axial CT images were obtained through the chest after injection of 100 mL Omnipaque 350 IV contrast. 3 plane MIP and/or 3D reconstructions were produced. All CT scans at this location are performed using CT dose reduction for ALARA by means of automated exposure control. COMPARISON: CT dated 02/02/20 FINDINGS: PULMONARY EMBOLUS: None. THORACIC AORTA: No significant abnormality. HEART: Mildly enlarged but stable. CORONARY ARTERY CALCIFICATION: Present -- Moderate. MEDIASTINUM / TREVER: No significant abnormality. PLEURA: No pleural effusion. No pneumothorax. LUNGS: No acute air space or interstitial disease. ADDITIONAL FINDINGS: None. UPPER ABDOMEN: No acute findings. SKELETAL STRUCTURES: No significant osseous abnormality. IMPRESSION: 1. No CT evidence for pulmonary embolism. 2. No acute findings. 2. Stable mild cardiomegaly. Signer Name: Janie Khan MD Signed: 09/24/2021 6:51 PM Workstation Name: [id number] Transcribed By: JERAD Dictated By: Richie Khan MD Electronically Authenticated By: Richie Khan MD Signed Date/Time: 09/24/211850 DD/ 47 TD/TT: Accession No. 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 TECHNIQUE: Duplex doppler imaging was performed through the veins of the right lower extremity using venous compression and other maneuvers. COMPARISON: None available. FINDINGS: RIGHT COMMON FEMORAL VEIN: Negative. RIGHT FEMORAL VEIN: Negative. RIGHT POPLITEAL VEIN: Negative. RIGHT CALF VEINS: Negative. ADDITIONAL FINDINGS: None. IMPRESSION: 1. No sonographic evidence for DVT in the right lower extremity. Signer Name: Janie Khan MD Signed: 09/24/2021 6:13 PM Workstation Name: [id number] Transcribed By: JERAD Dictated By: Richie Khan MD Electronically Authenticated By: Richie Khan MD Signed Date/Time: 09/24/211812 DD/ 12 TD/TT: Critical care attestation.: If time is entered above; I have spent that time in minutes in the direct care of this critically ill patient, excluding procedure time. ED Disposition Clinical Impression: Right groin pain, Right leg pain Disposition: 01 HOME / SELF CARE / HOMELESS Is pt being admited?: No Does the pt Need Aspirin: No Condition: Stable Instructions: How to Use Cold Therapy, [id number], Pain Without a Known Cause, How to Use Cold Therapy Additional Instructions: CT scan did not show any evidence of any hernia but groin injury versus inflammatory/infectious cause for this reason will be covered with some antib iotics please take antibiotics now tired in conjunction with anti- inflammatories. Your CT scan of the chest showed no evidence of any pulmonary embolism no did the the ultrasound of your right lower extremity calf pain is secondary to musculoskeletal issue as well please ice as needed and follow-up with orthopedic for further evaluation and treatment of your calf and your groin injury. Prescriptions: cephALEXin [Keflex] 500 mg PO Q8HR #30 cap Ketorolac [Toradol] 10 mg PO Q6H PRN #20 PRN Reason: Pain Referrals: PRIMARY CARE, [Primary Care Provider] - 3-5 Days [facility] [Provider Group] - 3-5 Days
[2021-09-24 15:27] LABS: Basophils % (Auto) 0.9 % (0.0-1.8); Eosinophils % (Auto) 0.7 % (0.0-4.3); Hematocrit 45.6 % (35.5-45.6); Hemoglobin 14.7 gm/dl (11.8-15.2); Lymphocytes # (Auto) 1.5 K/mm3 (1.2-5.4); Lymphocytes % (Auto) 39.1 % (13.4-35.0); Mean Corpuscular HGB Conc 32 % (32-34); Mean Corpuscular Volume 89 fl (84-94); Monocytes # (Auto) 0.3 K/mm3 (0.0-0.8); Monocytes % (Auto) 8.1 % (0.0-7.3); Platelet Count 252 K/mm3 (140-440); Red Blood Count 5.13 M/mm3 (3.65-5.03)
[2021-09-24 15:50] LABS: Alanine Aminotransferase 28 units/L (7-56); Albumin 4.4 g/dL (3.9-5); BUN/Creatinine Ratio 14; Blood Urea Nitrogen 14 mg/dL (9-20); Calcium 9.9 mg/dL (8.4-10.2); Hemolysis Index 4
[2021-09-24 15:55] LABS: Bilirubin,Direct < 0.2 mg/dL (0-0.2)
[2021-09-24 15:56] LABS: Bilirubin,Urine NEG (Negative); Blood,Urine NEG (Negative); Color,Urine Yellow (Yellow); Mucus,Urine FEW /HPF; Protein,Urine <15 mg/dL mg/dL (Negative); WBC,Urine < 1.0 /HPF (0.0-6.0)
--- NOTE | 2021-09-24 18:18 | Vascular Lab Report ---
DUPLEX DOPPLER LOWER EXTREMITY VEINS, RIGHT INDICATION / CLINICAL INFORMATION: calf pian. TECHNIQUE: Duplex doppler imaging was performed through the veins of the right lower extremity using venous compression and other maneuvers. COMPARISON: None available. FINDINGS: RIGHT COMMON FEMORAL VEIN: Negative. RIGHT FEMORAL VEIN: Negative. RIGHT POPLITEAL VEIN: Negative. RIGHT CALF VEINS: Negative. ADDITIONAL FINDINGS: None. IMPRESSION: 1. No sonographic evidence for DVT in the right lower extremity. Signer Name: Janie Khan MD Signed: 09/24/2021 6:13 PM Workstation Name: [id number]
--- NOTE | 2021-09-24 18:55 | Cat Scan Report ---
CTA CHEST WITH CONTRAST INDICATION / CLINICAL INFORMATION: calf pain and sudden chest pain. TECHNIQUE: Axial CT images were obtained through the chest after injection of 100 mL Omnipaque 350 IV contrast. 3 plane MIP and/or 3D reconstructions were produced. All CT scans at this location are per formed using CT dose reduction for ALARA by means of automated exposure control. COMPARISON: CT dated 02/02/20 FINDINGS: PULMONARY EMBOLUS: None. THORACIC AORTA: No significant abnormality. HEART: Mildly enlarged but stable. CORONARY ARTERY CALCIFICATION: Present -- Moderate. MEDIASTINUM / TREVER: No significant abnormality. PLEURA: No pleural effusion. No pneumothorax. LUNGS: No acute air space or interstitial disease. ADDITIONAL FINDINGS: None. UPPER ABDOMEN: No acute findings. SKELETAL STRUCTURES: No significant osseous abnormality. IMPRESSION: 1. No CT evidence for pulmonary embolism. 2. No acute findings. 2. Stable mild cardiomegaly. Signer Name: Janie Khan MD Signed: 09/24/2021 6:51 PM Workstation Name: [id number]
--- NOTE | 2021-09-24 19:05 | Cat Scan Report ---
CT ABDOMEN AND PELVIS WITH CONTRAST INDICATION / CLINICAL INFORMATION: Lower ABD Pain. Calf pain and sudden chest pain. TECHNIQUE: Axial CT images were obtained through the abdomen and pelvis after 100 mL Omnipaque [address] scans at this location are performed using CT dose reduction for ALARA by means of automated exposure control. COMPARISON: CT dated 10/26/18 FINDINGS: LOWER CHEST: No significant abnormality. LIVER: No significant abnormality. GALLBLADDER: No significant abnormality. BILE DUCTS: No significant abnormality. PANCREAS: No significant abnormality. SPLEEN: No significant abnormality. ADRENALS: No significant abnormality. RIGHT KIDNEY / URETER: No significant abnormality. LEFT KIDNEY / URETER: No significant abnormality. STOMACH / SMALL BOWEL: No significant abnormality. COLON: Moderate amount of fecal material in the rectal vault with small to moderate amount of fecal m aterial throughout the remainder of the colon. APPENDIX: Not visualized. PERITONEUM: No free fluid. No free air. No fluid collection. LYMPH NODES: No significant adenopathy. AORTA / ARTERIES: No significant abnormality. IVC / VEINS: No significant abnormality. URINARY BLADDER: Contracted and mildly thick-walled. REPRODUCTIVE ORGANS: Prostate is enlarged. ADDITIONAL FINDINGS: Small amount of fluid and inflammation within and around the right adductor long us muscle extending into the right groin. SKELETAL SYSTEM: Post traumatic deformity of the left iliac wing with mild anterior wedging of the L1 vertebral body, unchanged. No acute osseous abnormality. IMPRESSION: 1. Moderate amount of fecal material in the rectal vault could represent constipation versus developi ng fecal impaction. 2. No inflammatory process or bowel obstruction. 3. Right groin muscular fluid inflammation which could be posttraumatic such as muscle strain versus inflammatory/infectious. Signer Name: Janie Khan MD Signed: 09/24/2021 7:01 PM Workstation Name: [id number]
[2021-09-24 19:31] VITALS: BP 169/107
--- NOTE | 2021-09-25 14:35 | Electrocardiograph Report ---
[facility] Test Date: 2021-09-24 Test Time: 16:09:04 Pat Name: KAITY LOPEZ Department: Room: Gender: M [employer]: OLIVERIO : 1950 Requested By: AILIN POWELL Order Number: [id number] Reading MD: Micah Casillas Measurements Intervals Harbinger Rate: 68 P: 70 MO: 171 QRS: 19 QRSD: 101 T: 65 QT: 415 QTc: 442 Interpretive Statements Sinus rhythm Probable left atrial enlargement Borderline ST elevation, anterior leads No previous ECG available for comparison Electronically Signed On 09-25-2021 14:35:17 EST by Micah Casillas
== END 2021-09-24 20:59 | disposition home or self-care (01) ==
LOC: ED 13:03
DX: R10.84 Generalized abdominal pain (principal); M79.661 Pain in right lower leg; I11.0 Hypertensive heart disease with heart failure; I50.9 Heart failure, unspecified; N20.0 Calculus of kidney; Z79.899 Other long term (current) drug therapy; Z98.890 Other specified postprocedural states
CPT/HCPCS: 36415; 71275; 74177; 80048; 80076; 81001; 83690; 83880; 84484; 85025; 93005; 93010; 93971; 99284; Q9967